=== PATIENT | female | born 1940 | race Caucasian/White ===

== ENCOUNTER 2018-11-22 08:36 | Inpatient (IN) ==
--- NOTE | 2018-11-08 15:18 | PAT Medication Instructions ---
Medication Instructions Date of Service November 08, 2018 Home Medications aspirin [Aspir-Low] 81 mg PO QAM diclofenac sodium 50 mg PO TID PRN hydrochlorothiazide 50 mg PO QAM losartan 100 mg PO QAM tramadol 1 - 2 tab PO Q6H PRN ASK your surgeon for instructions aspirin [Aspir-Low] 81 mg PO QAM diclofenac sodium 50 mg PO TID PRN DO NOT take the morning of surgery hydrochlorothiazide 50 mg PO QAM losartan 100 mg PO QAM Take morning of surgery With a small sip of water, OTHERWISE NOTHING TO EAT OR DRINK AFTER MIDNIGHT: tramadol 1 - 2 tab PO Q6H PRN (okay to take up to 4 hours prior to surgery if needed) Other Notes If you have any questions please call us at [phone] or [phone] or [phone] or [phone]
--- NOTE | 2018-11-09 13:24 | Anesthesiology Consultation ---
Date of Service November 09, 2018 Assessment & Plan (1) Encounter for pre-operative examination: - Cardio= 10/18/18= dizziness/bradycardia/chest discomfort complaints. Holter monitor ordered (done 10/27/18). Symptoms resolved after discontinuation of amlodipine which was started shortly prior to patient's development of symptoms. Updated cardio note= 11/13/18= "clear for surgery at intermediate risk." Chart Review Chart Review: Acceptable Risk for Surgery and Patient seen in Pre Admission Testing Teaching & Discussion Pre-Anesthesia Teaching/Discussion Notes: Instructed NPO after midnight before surgery,except medications with 15 cc of water. Medication instructions provided according to the PAT guidelines. History Surgery Operation Date: 11/22/18 12:35 Proposed Procedures p Right Reverse Total Shoulder Arthroplasty - Stone Johnson DO Height/Weight Height: 5 ft 5 in Weight: 97.3 kg Allergies Allergy/AdvReac Type Severity Reaction Status Date / Time Penicillins Allergy Severe DYSPNEA/THROAT Verified 11/09/18 13:50 SWELLING/LIMB SWELLING amlodipine AdvReac BRADYCARDIA Verified 11/09/18 13:52 sodium pentothal Allergy Severe DYSPNEA/THROAT Uncoded 11/09/18 13:50 SWELLING/LIMB SWELLING Medications Home Medications Medication Instructions Recorded Confirmed Last Taken aspirin [Aspir-Low] 81 mg PO QAM 11/08/18 11/08/18 Unknown diclofenac sodium 50 mg PO TID PRN 11/08/18 11/08/18 Unknown hydrochlorothiazide 50 mg PO QAM 11/08/18 11/08/18 Unknown losartan 100 mg PO QAM 11/08/18 11/08/18 Unknown tramadol 1 - 2 tab PO Q6H PRN 11/08/18 11/08/18 Unknown Past Medical History Medical History CAD (coronary artery disease) "MILD" Hypertension Obesity Osteoarthritis Spinal stenosis Vascular disease S/P RLE STENT Past Surgical History Surgical History History of cardiac catheterization 2005= NO STENTS History of cataract surgery B/L + LENS IMPLANT History of colonoscopy History of lumbar surgery History of surgery RLE STENT History of tooth extraction History of total abdominal hysterectomy and bilateral salpingo-oophorectomy History of total knee replacement B/L Past Anesthesia History No Hx of Anesthesia Complications and No Family Hx of Anesthesia Complications History of PONV Yes () Motion Sickness Screening History of Motion Sickness: No Social History Smoking Status: Never smoker Do You Dip or Chew Tobacco: No Hx Alcohol Use: No Hx Substance Use: No substance use type: does not use Exercise / Class Metabolic Activity III < 4 Walking/Shop/Light housework Review of Systems Right shoulder pain with RUE radiculopathy. Patient denies chest pain, shortness of breath, cough, wheezing, palpitations. Physical Exam Vital Signs VITALS BP 121/82 P 77 TEMP 97.9 SP02 92%RA RESP 18 PHYSICAL Full neck and c-spine range of motion. Full TMJ range of motion. TMD 3 finger breaths Mallampati Score 2 Dentition: full dentures upper/lower; edentulous Lungs: clear throughout to auscultation Cardiac: regular rate and rhythm, no murmurs noted Spine: normal Carotid arteries: negative bruit Extremities: no edema Testing Electrocardiogram Date: 10/18/18 Findings: + NSR @ (84) Chest X-Ray Date: 11/09/18 Findings: + NAD Echocardiogram Date: 11/08/17 LVEF 50-55%. No RWMA. Grade I DD. No significant valvular disease. Stress Test Date: 11/08/17 Type: nuclear (LEXISCAN) Gated SPECT imaging reveals normal wall motion, myocardial thickening and systolic function. Stress EKG "normal." LVEF 65-70%. Other Testing 24 hour Holter Monitor= 10/27/18= predominant rhythm NSR. Periods of sinus arrhythmia/sinus tachycardia. No episodes a. fib or a. flutter. Moderate PAC's. Rare PVC's. Laboratory Results Blood Type A Negative 11/09/18 14:01 Antibody Screen NEGATIVE 11/09/18 14: PT 10.6 Seconds (9.0-12.0) 11/09/18 14:01 INR 1.0 (0.9-1.1) 11/09/18 14:01 APTT 25.6 Seconds (21.0-31.0) 11/09/18 14:01 10/03/18 WBC 8.7 H/H 14.9/43.7 PLATELETS 227 SODIUM 140 POTASSIUM 4.2 CHLORIDE 107 CO2 24 BUN 17 CREATININE 0.91 GLUCOSE 112
--- NOTE | 2018-11-09 14:18 | XRay Report ---
XR chest Pre-admission PA/Lat CLINICAL HISTORY: Preoperative chest COMPARISON STUDY: No previous studies for comparison. FINDINGS: The cardiac and mediastinal contours are normal. There is no evidence of focal pulmonary co nsolidation. There is no evidence of failure. No pleural effusions are visualized.[ There are advance d osteoarthritic changes in the left shoulder and moderate osteoarthritic changes within the right sh oulder. IMPRESSION: No active disease in the chest. Electronically signed by: Aquiles Ross M.D. 11/09/2018 2:17 PM
[2018-11-09 14:44] LABS: Partial Thromboplastin Ratio 0.9; Partial Thromboplastin Time 25.6 Seconds (21.0-31.0); Prothrombin Time 10.6 Seconds (9.0-12.0)
--- NOTE | 2018-11-21 19:51 | History & Physical Report ---
Date of Service November 21, 2018 Assessment & Plan (1) Primary osteoarthritis of right shoulder: We will proceed with a reverse right shoulder arthroplasty. Postoperatively she will be placed in the sling and kept overnight at the hospital for postoperative medical management. She plans to use home nursing agency upon discharge. Present on Admission?: Yes History of Present Illness Chief Complaint: Primary osteoarthritis of the right shoulder Primary Care Provider: Rosa Abdalla DO Leona is a pleasant 78-year-old female who has been dealing with a long history of right shoulder pain. It hurts her for the past 10 years. It is to the point now where it is really affecting her quality of life. She cannot sleep on that side. It hurts her all night. She is in constant pain because of her shoulder. She has had x-rays and an MRI of her shoulder which shows advanced osteoarthritis and a weakened atrophied rotator cuff. She has had multiple injections in her shoulder without relief. After failing conservative treatment she has elected proceed with a reverse right shoulder arthroplasty. Allergies Allergy/AdvReac Type Severity Reaction Status Date / Time Penicillins Allergy Severe DYSPNEA/THROAT Verified 11/09/18 13:50 SWELLING/LIMB SWELLING thiopental [From Pentothal] Allergy Severe DYSPNEA/THROAT Verified 11/16/18 15:08 SWELLING/LIMB SWELLING amlodipine AdvReac BRADYCARDIA Verified 11/09/18 13:52 Home Medications Home Medications Medication Instructions Recorded Confirmed Type aspirin [Aspir-Low] 81 mg PO QAM 11/08/18 11/08/18 History diclofenac sodium 50 mg PO TID PRN 11/08/18 11/08/18 History hydrochlorothiazide 50 mg PO QAM 11/08/18 11/08/18 History losartan 100 mg PO QAM 11/08/18 11/08/18 History tramadol 1 - 2 tab PO Q6H PRN 11/08/18 11/08/18 History Past Med/Surg History Medical History CAD (coronary artery disease) "MILD" Hypertension Obesity Osteoarthritis Spinal stenosis Vascular disease S/P RLE STENT Surgical History History of cardiac catheterization 2005= NO STENTS History of cataract surgery B/L + LENS IMPLANT History of colonoscopy History of lumbar surgery History of surgery RLE STENT History of tooth extraction History of total abdominal hysterectomy and bilateral salpingo-oophorectomy History of total knee replacement B/L Social History Preferred Language: Jamaican Communication Ability: Effective Composite Bond Technician Required: No Beliefs That Will Affect Care: None Current Living Situation: Spouse Other Information That Helps Us Care for You: No Feels Safe at Home: Yes Safety Concerns: Feels Safe At This Time Smoking Status: Never smoker Hx Alcohol Use: No Hx Substance Use: No Review of Systems All systems reviewed & are unremarkable except as noted in HPI & below Physical Exam Constitutional: WD/WN, vitals as above Eyes: PERRL, conjunctivae normal, anicteric sclerae ENMT: external ear and nose normal, oropharynx normal Neck: trachea midline, no thyromegaly Respiratory: normal respiratory effort Cardiovascular: RRR, no murmur, no edema Gastrointestinal (Abdomen): normal bowel sounds, soft, nontender, no hepatosplenomegaly Musculoskeletal: Physical examination of the right shoulder reveals decreased range of motion and crepitis throughout. There is good strength with full can testing and external rotation. There is tenderness palpation along the anterior glenohumeral joint line. The right upper extremity is neurovascularly intact. Psychiatric: A+Ox3, euthymic affect Results & Data Diagnostic Findings Radiographs of the right shoulder show osteoarthritis of the glenohumeral joint. There is joint space narrowing, osteophyte formation, and [id number] articulation.
[~2018-11-22 08:36] MED LIST: ACETAMINOPHEN 500 MG TAB PO SCH; CEFAZOLIN 2000MG 2,000 MG/15 ML SYR IV SCH; DEXAMETHASONE SOD INJ 4 MG/ML VIAL ONE; FAMOTIDINE 20 MG TAB PO SCH; GABAPENTIN 300 MG PO SCH; LR 15ML/HR IV SCH; LR 60ML/HR IV SCH; ROPIVACAINE 0.5% 5 MG/ML 30 ML VIAL ONE; ROPIVACAINE 0.5% HCL/PF 150 MG, BUPIVACAINE 0.5% MPF 30 ML, EPINEPHrine 30MG/30ML (OR U... INFIL SCH; TRANEXAMIC ACID 1,000 MG **IV Intra-op IV SCH; TRANEXAMIC ACID 1,000 MG **IV Pre-op IV SCH
--- NOTE | 2018-11-22 09:09 | History & Physical Bridge Note ---
Date of Service November 22, 2018 History & Physical Bridge Note I have examined the patient, reviewed the History & Physical and in the interval since the performance of the History & Physical I have noted the following changes of clinical significance: no changes noted
[2018-11-22] MEDS ORDERED: BUPIVACAINE 0.5 % 5 MG/1 ML PF 10ML VIAL ONE (10:12)
[2018-11-22] MEDS ORDERED: LIDOCAINE HCL 2% 2 ML VIAL/AMP(20MG/ML) INFIL ONE (10:15)
[2018-11-22] MEDS ORDERED: POVIDONE-IODINE OP SOLN 30 ML BTL ONE (11:39)
[2018-11-22] MEDS ORDERED: ORTHO JOINT ANESTHETIC ONE (11:39)
[2018-11-22] MEDS ORDERED: MIDAZOLAM HCL 1 MG/ML 2ML VIAL ONE (11:43)
[2018-11-22] MEDS ORDERED: fentaNYL citrate 100 MCG/2 ML VIAL ONE ×2 (11:44→11:57)
[2018-11-22] MEDS ORDERED: PROPOFOL IV EMULSION 10 MG/ML 20 ML VIAL IV ONE (13:20)
[2018-11-22] MEDS ORDERED: GLYCOPYRROLATE 0.2 MG/ML VIAL ONE (13:45)
[2018-11-22] MEDS ORDERED: ONDANSETRON INJ 2 MG/ML 2 ML VIAL ONE (13:45)
[2018-11-22] MEDS ORDERED: DEXAMETHASONE SOD INJ 4 MG/ML VIAL ONE (13:45)
[2018-11-22] MEDS ORDERED: NEOSTIGMINE METHYLSULFATE 5 MG/5 ML SYR ONE (13:45)
--- NOTE | 2018-11-22 13:45 | Operative Report ---
Post Operative Report Pre & Post Diagnosis Operation Date: 11/22/18 10:55 Pre-Op Diagnosis: Chronic Rotator Cuff Tear Right Shoulder Post-Op Diagnosis: Chronic Rotator Cuff Tear Right Shoulder Procedure Operation Date: 11/22/18 10:55 Actual Procedures p Right Reverse Total Shoulder Arthroplasty(Right) - Stone Johnson DO Surgeon Stone Johnson DO Full Stack Php Developer Stone Dickey PAC Estimated Blood Loss 200 Findings Consistent with Post-Op Diagnosis Specimens Right humeral head Complications none Disposition Disposition: Recovery Room Indications Leona is a pleasant 78-year-old female who presented my office with chronic increasing right shoulder pain. X-rays and clinical examination were diagnostic for advanced osteoarthritis of the right shoulder. Given her lack of motion and her age, along with the glenoid bone loss, we elected to proceed with a reverse right shoulder arthroplasty. Description of Procedure Implants used: I used a [employer] Comprehensive reverse total shoulder arthroplasty system with a size 14 press fit mini humeral stem, a standard humeral tray and a standard humeral bearing, a 25 mm mini baseplate with a 6.5 mm central screw and superior and inferior locking screws, and a size 36 mm +3 eccentric glenosphere. The patient arrived at [facility] for the above procedure. There were seen in the preoperative holding area and the operative extremity was identified and signed. They were given a preoperative antibiotic and an interscalene nerve block. They were taken back to the operating room, laid on table in supine position, and put under general anesthesia. They were then put into the beachchair position. The shoulder was then prepped and draped in sterile fashion. A timeout was done and the patient in the operative extremity was properly identified. A deltopectoral approach was used. Dissection was taken down through the fascia and the deltoid was retracted laterally and the conjoined tendon was retracted medially. The anterior shoulder was exposed. The long head of the biceps tendon was tenodesed to the upper border of the pectoralis major. The subscapularis was then released off the lesser tuberosity with a centimeter of cuff tissue remaining. The inferior capsule was released and the humeral head was dislocated. A canal finding reamer was sent down the center of the humeral canal. Sequential reaming up to a size 14 reamer was done. Off that reamer, a proximal humeral resection guide was placed. The proximal humerus was resected at 135 of inclination and 25 of retroversion. Osteophytes were then removed and the glenoid was exposed. Time was spent doing a complete capsular and labral release. The glenoid guide was then placed in the inferior aspect of the glenoid. A 3.2 mm Steinmann pin was then placed into the glenoid vault at 10 of inclination. The glenoid baseplate was then reamed. The final size 25 mm mini baseplate was then impacted in the place. A 6.5 mm central screw was then placed followed by superior and inferior locking screws. A 36 mm +3 eccentric glenoid sphere was then impacted into place. Surrounding soft tissues were then injected with 100 cc an orthopedic pain control cocktail. The proximal humerus was then exposed. Sequential broaching of the humerus up to a size 14 broach was done. Off that broach a standard humeral tray was trialed. The shoulder was then reduced, brought through a full range of motion and felt to be stable. The shoulder was then dislocated and the broach was removed. The final size 14 mini press-fit humeral stem was then impacted into place. A standard humeral bearing was then snapped onto a standard humeral tray and the ring-lock mechanism was engaged. The humeral tray was then impacted onto the humeral stem. The shoulder was once again reduced, brought through a full range of motion and felt to be stable. The subscapularis was then tenodesed back to the lesser tuberosity with transosseous FiberWire sutures and side to side sutures with the arm in 45 of external rotation. A dilute betadyne lavage was then done for 3 minutes. The joint was then irrigated with normal saline solution. Hemostasis was obtained. The skin was then closed with 2-0 Vicryl, 3-0V lock suture, and abdelrahman. A soft dressing and a regular arm sling was placed. The patient was then extubated and transferred to a hospital bed. They were taken to the postanesthesia care unit in stable condition. They tolerated the procedure well. I attest to the content of the Intraoperative Record and any orders documented therein. Any exceptions are noted below.
[2018-11-22] MEDS ORDERED: ONDANSETRON INJ 2 MG/ML 2 ML VIAL IV PRN ×2 (14:31→15:58)
[2018-11-22] MEDS ORDERED: PROMETHAZINE HCL 12.5 MG in SODIUM CHLORIDE 0.9% 50 ML IV PRN (14:31)
[2018-11-22] MEDS ORDERED: ePHEDrine sulfate 50 MG/ML AMP IV PRN (14:31)
[2018-11-22] MEDS ORDERED: METOCLOPRAMIDE HCL INJ 5 MG/ML 2 ML VIAL IV PRN ×2 (14:31→15:58)
[2018-11-22] MEDS ORDERED: ATROPINE SULFATE 0.1 MG/ML 10ML SYR IV PRN (14:31)
--- NOTE | 2018-11-22 14:40 | XRay Report ---
XR shoulder RT min 2V routine CLINICAL HISTORY: Post shoulder surgery COMPARISON: Right shoulder radiographs June 23, 2018. MRI of the right shoulder September 14, 2018. FINDINGS: Alignment of the reverse total right shoulder arthroplasty is anatomic. There is no unexpe cted radiopaque foreign body. Note is made of a lucency within the shaft of the right humerus distal to the distal aspect of the humeral component. This favors a nondisplaced fracture. Hardware is intac t. There are skin abdelrahman. Mild right lower lung opacity favors atelectasis. IMPRESSION: 1. Lucency within the shaft of the right humerus adjacent to the distal aspect of the humeral compone nt. This favors a nondisplaced fracture. A vascular channel could appear similar although is consider ed less likely. This finding will be called to the ordering physician. 2. Status post total right shoulder arthroplasty. No unexpected radiopaque foreign bodies. Hardware i ntact. Electronically signed by: Nathaniel Mike M.D. 11/22/2018 2:38 PM
[2018-11-22] MEDS ORDERED: BISACODYL 10 MG SUPP PR PRN (15:58)
[2018-11-22] MEDS ORDERED: NALOXONE HCL 0.4 MG/1 ML VIAL/CARP IV PRN (15:58)
[2018-11-22] MEDS ORDERED: OXYCODONE HCL IR 5 MG TAB (IMMEDIATE RELEASE) PO PRN (15:58)
[2018-11-22] MEDS ORDERED: CEFAZOLIN 2000MG 2,000 MG/15 ML SYR IV SCH (15:58)
[2018-11-22] MEDS ORDERED: HYDROmorphone INJ 0.5 MG/0.5 ML SYR IV PRN (15:58)
[2018-11-22] MEDS ORDERED: MAGNESIUM HYDROXIDE SUSP 30 ML UDC PO PRN (15:58)
--- NOTE | 2018-11-22 16:43 | Anesthesiology Progress Note ---
Date of Service November 22, 2018 Anesthesia Post Procedure Vital Signs Vital Signs: Temp Pulse Pulse Resp BP Pulse Ox 11/22/18 16:08 71 17 133/83 98 11/22/18 15:40 36.4 C L 68 15 119/77 97 11/22/18 15:25 75 17 113/67 95 11/22/18 15:10 74 15 121/78 94 11/22/18 14:55 78 16 131/85 94 11/22/18 14:45 36.4 C L 78 14 127/77 93 11/22/18 14:35 80 16 133/83 92 11/22/18 14:25 82 18 140/89 92 11/22/18 14:15 86 17 130/85 95 11/22/18 14:09 36.1 C L 92 H 16 130/87 95 11/22/18 09:50 36.8 C 76 20 135/94 91 Pain Intensity Right Shoulder: Pain Intensity: 5 Notes Mental Status: alert / awake / arousable and participated in evaluation Patient Amnestic to Procedure: Yes Nausea / Vomiting: adequately controlled Pain: adequately controlled Airway Patency, RR, SpO2: stable & adequate BP & HR: stable & adequate Hydration State: stable & adequate Anesthetic Complications: no major complications apparent
[2018-11-22] MEDS: KETOROLAC TROMETHAMINE 15 MG/ML VIAL IV SCH ×2 (18:32→23:24)
[2018-11-22] MEDS: SODIUM CHLORIDE 0.9% 1000ML 1,000 ML IV SCH (19:26)
[2018-11-22] MEDS: ACETAMINOPHEN 500 MG TAB PO SCH (20:44)
[2018-11-22] MEDS: DOCUSATE SODIUM 100 MG CAP PO SCH (20:44)
[2018-11-22] MEDS: CLINDAMYCIN 600 MG in DEXTROSE 5% 50 ML IV SCH (20:44)
[2018-11-22] MEDS ORDERED: SENNA 8.6 MG TAB PO SCH (21:00)
[2018-11-23] MEDS: CLINDAMYCIN 600 MG in DEXTROSE 5% 50 ML IV SCH (03:15)
[2018-11-23] MEDS: KETOROLAC TROMETHAMINE 15 MG/ML VIAL IV SCH ×2 (05:24→12:48)
[2018-11-23] MEDS: ACETAMINOPHEN 500 MG TAB PO SCH (05:24)
[2018-11-23] MEDS: SODIUM CHLORIDE 0.9% 1000ML 1,000 ML IV SCH (05:34)
[2018-11-23 06:41] LABS: Basophils # (auto) 0.01 K/uL (0-0.2); Basophils % (auto) 0.1 %; Eosinophils # (auto) 0.03 K/uL (0-0.5); Eosinophils % (auto) 0.3 %; Hematocrit (blood only) 34.1 % (37-47); Hemoglobin 11.6 g/dL (12.0-16.0); Immature Granulocytes # (auto) 0.01 K/uL (0.00-0.02); Immature Granulocytes % (auto) 0.1 %; Lymphocytes # (auto) 1.14 K/uL (1.2-3.4); Lymphocytes % (auto) 11.6 %; Mean Corpuscular Volume 86.8 fL (80-100); Mean Platelet Volume 9.6 fL (7.4-10.4); Monocytes # (auto) 0.93 K/uL (0.11-0.59); Monocytes % (auto) 9.5 %; Neutrophils # (auto) 7.72 K/uL (1.4-6.5); Neutrophils % (auto) 78.4 %; Platelet Count 161 K/uL (130-400); RDW Coefficient of Variation 13.3 % (11.5-14.5); RDW Standard Deviation 42.5 fL (36.4-46.3); Red Blood Count 3.93 M/uL (4.2-5.4); White Blood Count 9.84 K/uL (4.8-10.8)
[2018-11-23 07:06] LABS: BUN Creatinine Ratio 19.3 (10-20); Calcium 8.2 mg/dl (8.5-10.1); Creatinine Clr Calc Pharmacy 54.8 ml/min; Est GFR (African American) 67.3; Potassium 3.6 mmol/L (3.5-5.1)
--- NOTE | 2018-11-23 08:19 | Anesthesiology Progress Note ---
Date of Service November 23, 2018 Anesthesia Post Procedure Vital Signs Vital Signs: Temp Pulse Pulse Resp BP Pulse Ox 11/23/18 07:06 36.6 C 59 L 18 101/66 92 11/23/18 02:43 36.4 C L 64 16 120/80 91 11/22/18 22:57 36.7 C 67 20 119/74 94 11/22/18 18:34 36.3 C L 77 15 124/83 97 11/22/18 17:49 64 16 105/71 96 11/22/18 16:43 67 17 122/81 95 11/22/18 16:08 71 17 133/83 98 11/22/18 15:40 36.4 C L 68 15 119/77 97 11/22/18 15:25 75 17 113/67 95 11/22/18 15:10 74 15 121/78 94 11/22/18 14:55 78 16 131/85 94 11/22/18 14:45 36.4 C L 78 14 127/77 93 11/22/18 14:35 80 16 133/83 92 11/22/18 14:25 82 18 140/89 92 11/22/18 14:15 86 17 130/85 95 11/22/18 14:09 36.1 C L 92 H 16 130/87 95 11/22/18 09:50 36.8 C 76 20 135/94 91 Pain Intensity Right Shoulder: Pain Intensity: 5 Notes Mental Status: alert / awake / arousable and participated in evaluation Nausea / Vomiting: adequately controlled Pain: adequately controlled Airway Patency, RR, SpO2: stable & adequate BP & HR: stable & adequate Hydration State: stable & adequate Neuraxial Anesthesia: sensory block is resolving Anesthetic Complications: Pt Satisfied with anesthetic care
--- NOTE | 2018-11-23 08:32 | Orthopedic Progress Note ---
Date of Service November 23, 2018 Assessment & Plan (1) Primary osteoarthritis of right shoulder: Overall she is doing very well. She is not having any pain in the right shoulder. She will be seen by physical therapy this morning to do hand, wrist, and pendulum exercises. We will discharge her to home later this morning with oral pain medications. I did tell her about the small fracture off the inferior aspect of the prosthesis and I told her we will not make any difference in her recovery and she was happy to hear that. She did not seem concerned. She will follow-up with orthopedics in 2 weeks. Present on Admission?: Yes Savita Delgadillo was seen and examined at bedside this morning. Overall she is doing very well. She is not having any pain in the right shoulder. She is happy with her progress. She has no complaints. Physical Exam Vital Signs (Past 24 Hours): Last Vital Signs Temp 36.6 C 11/23/18 07:06 Pulse 59 L 11/23/18 07:06 Resp 18 11/23/18 07:06 BP 101/66 11/23/18 07:06 Pulse Ox 92 11/23/18 07:06 Musculoskeletal: On physical examination of the right shoulder, the dressing is clean and dry. Her radial, median, and ulnar nerves are all checked and intact at the wrist. Her axillary nerve was not checked yet. She is wearing her sling as instructed. Results & Data Laboratory Results H & H 11/23/18 Range/Units 06:28 Hgb 11.6 L (12.0-16.0) g/dL Hct 34.1 L (37-47) % Coagulation 11/09/18 Range/Units 14:01 INR 1.0 (0.9-1.1) Diagnostic Findings Postoperative x-rays of the right shoulder show the prosthesis to be in anatomic alignment without any evidence of dislocation or loosening. There is a small line off the inferior aspect of the prosthesis. This may be a very small nondisplaced fracture. This will not make any difference in her recovery.
--- NOTE | 2018-11-23 08:33 | Discharge Summary ---
Date of Service November 23, 2018 Admission HPI Per Admitting Provider Leona is a pleasant 78-year-old female who has been dealing with a long history of right shoulder pain. It hurts her for the past 10 years. It is to the point now where it is really affecting her quality of life. She cannot sleep on that side. It hurts her all night. She is in constant pain because of her shoulder. She has had x-rays and an MRI of her shoulder which shows advanced osteoarthritis and a weakened atrophied rotator cuff. She has had multiple injections in her shoulder without relief. After failing conservative treatment she has elected proceed with a reverse right shoulder arthroplasty. Specialty Data Orthopedic H & H 11/23/18 Range/Units 06:28 Hgb 11.6 L (12.0-16.0) g/dL Hct 34.1 L (37-47) % Coagulation 11/09/18 Range/Units 14:01 INR 1.0 (0.9-1.1) Discharge Data Consultations 11/22/18 15:58 Consult Case Management - Discharge Planning Routine Procedures Performed Operation Date: 11/22/18 10:55 Actual Procedures p Right Reverse Total Shoulder Arthroplasty(Right) - Stone Johnson, DO Hospital Course (1) Primary osteoarthritis of right shoulder: On November 22, 2018 Leona arrived at [facility] and underwent a right reverse shoulder arthroplasty without complication. She had a general anesthetic and a right interscalene nerve block. Postoperatively she was placed in an arm sling and discharged to general orthopedic floors. Her hospital course was uneventful. On postop day #1 her H&H was stable and her pain was well controlled. She was able to participate well with physical therapy doing range of motion exercises. She was then discharged to home and will follow-up with orthopedics in 2 weeks. Discharge Instructions Home Medications Medication Instructions Recorded Confirmed aspirin [Aspir-Low] 81 mg PO QAM 11/08/18 11/22/18 diclofenac sodium 50 mg PO TID PRN 11/08/18 11/22/18 hydrochlorothiazide 50 mg PO QAM 11/08/18 11/22/18 losartan 100 mg PO QAM 11/08/18 11/22/18 tramadol 1 - 2 tab PO Q6H PRN 11/08/18 11/22/18 Previous Rx's Medication Instructions Recorded oxycodone 5 - 10 mg PO Q4H PRN #30 tab 11/23/18
[2018-11-23] MEDS: DOCUSATE SODIUM 100 MG CAP PO SCH (08:52)
[2018-11-23] MEDS ORDERED: ASPIRIN 81 MG ECTAB PO SCH (09:00)
[2018-11-23] MEDS ORDERED: LOSARTAN POTASSIUM 50 MG TAB PO SCH (09:00)
[2018-11-23] MEDS ORDERED: MULTIVITAMIN TAB PO SCH (09:00)
[2018-11-23 11:02] VITALS: BP 96/64; PULSE 70; TEMP 98.6; O2SAT 90
== END 2018-11-23 13:58 | disposition home or self-care (01) | DRG 483 ==
LOC: ASU 08:36 → 3E 11:55

== ENCOUNTER 2020-02-05 10:45 | Inpatient (IN) ==
--- NOTE | 2020-01-30 14:02 | Anesthesiology Consultation ---
Date of Service January 30, 2020 Assessment & Plan (1) Encounter for pre-operative examination: Patient was seen in [facility] 11/2019. Case R/S to later date due to COVID19 pandemic. + H/O PONV. Patient was very satisfied with anesthetic with prior TSA 11/2018. Had 3 days of pain relief at surgical site with Experel. Unsure if scopolamine patch used, but patient did not have PONV. Apply at anesthesia discretion AM DOS as pt is > 80yo. Patient seen by cardiology on 10/16 for evaluation of DEVRIES and chest pain syndrome. Echo and stress ordered and done. Stress test negative for ischemia and infarct. Echo with EF 50% and incidental finding of PFO. Testing reviewed by cardiology at 11/06 visit. Patient started on Metoprolol and Crestor, to f/u in 6 months. Pre-op laboratory studies out of date, will need to be updated AM DOS -- CBC, BMP, PT/INR/PTT. COVID Status: As of nurse assessment 01/29, patient denies travel to endemic area, known exposure/sick contacts, or symptoms. Patient resides in [facility] and has traveled to [facility]. Testing for coronavirus done 01/29 as preoperative screen. Results pending. Chart Review Chart Review: Acceptable Risk for Surgery (pending covid19 test results) and Patient NOT seen in Pre Admission Testing History Surgery Operation Date: 02/05/20 12:45 Proposed Procedures p Left Reverse Total Shoulder Arthroplasty - Stone Johnson DO Height/Weight Height: 5 ft 6 in Weight: 96.162 kg Allergies Allergy/AdvReac Type Severity Reaction Status Date / Time Penicillins Allergy Severe DYSPNEA/THROAT Verified 01/30/20 11:25 SWELLING/LIMB SWELLING thiopental [From Pentothal] Allergy Severe DYSPNEA/THROAT Verified 01/30/20 11:25 SWELLING/LIMB SWELLING amlodipine Allergy Intermediate BRADYCARDIA Verified 01/30/20 11:25 Medications Home Medications Medication Instructions Recorded Confirmed Last Taken diclofenac sodium 50 mg PO TID PRN 11/08/18 01/30/20 11/15/18 09:00 losartan 100 mg PO QAM 11/08/18 01/30/20 11/21/18 09:00 tramadol 50 - 100 mg PO Q6H PRN 10/23/19 01/30/20 Unknown aspirin 81 mg PO QAM 01/30/20 01/30/20 Unknown cholecalciferol (vitamin D3) 50 mcg PO QAM 01/30/20 01/30/20 Unknown [Vitamin D3] hydrochlorothiazide 25 mg PO QAM 01/30/20 01/30/20 Unknown rosuvastatin 10 mg PO HS 01/30/20 01/30/20 Unknown Past Medical History Medical History Elevated LDL cholesterol level Heartburn OCC, 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 Hypertension Obesity Osteoarthritis Spinal stenosis Urinary, incontinence, stress female Vascular disease S/P RLE STENT Vitamin D deficiency Past Family History Family History Other No significant family history Past Surgical History Surgical History History of bilateral hip replacements (Acute) History of cardiac catheterization 2006= NO STENTS PT REPORTS 100% CLEAR History of cataract surgery B/L + LENS IMPLANT History of colonoscopy History of lumbar surgery History of reverse total replacement of right shoulder joint (~11/2018) History of surgery RLE STENT (VASCULAR SURGERY) History of tooth extraction History of total abdominal hysterectomy and bilateral salpingo-oophorectomy Nausea and vomiting after administration of anesthetic agent Social History Smoking Status: Never smoker Do You Dip or Chew Tobacco: No Hx Alcohol Use: No Hx Substance Use: No substance use type: does not use Testing Other Testing Electrocardiogram Date: 10/31/19 Findings: + NSR @ (65) Chest X-Ray Date: 10/31/19 Findings: + NAD Echocardiogram Date: 11/01/19 EF: 50% Low normal LV systolic function. Normal LV diameter. Mild concentric LVH. No rmal diastolic function. Normal right ventricular size and function. No significant valvular stenosis. Trivial aortic regurgitation. Patent foramen ovale. Estimated PA systolic pressure is normal. Stress Test Date: 11/01/19 Type: nuclear Resting EF: 60% Baseline EKG showed sinus rhythm. No significant ST changes with Lexiscan administration. Patient reached 74% MPHR. PVCs. Patient developed dizziness (in recovery), chest pain, "feeling hot" during Lexiscan administration. Stress test is negative for ischemia by EKG criteria. No clear findings: LV and RV normal size. Normal LV wall motion. SPECT images normal. No evidence of infarction or ischemia noted. Recommend medical treatment.
--- NOTE | 2020-02-05 06:40 | History & Physical Report ---
Date of Service February 05, 2020 Assessment & Plan (1) Osteoarthritis of left shoulder: We will proceed with a left reverse shoulder arthroplasty. Postoperatively she will be placed in a sling and kept overnight for postoperative medical management. She plans to go to outpatient physical thera py upon discharge. Leona is a low to moderate risk for shoulder replacement surgery. Present on Admission?: Yes History of Present Illness Chief Complaint: Advanced osteoarthritis of the left shoulder Primary Care Provider: Rosa Abdalla DO Leona is a pleasant 79-year-old female who has been dealing with chronic increasing left shoulder pain. X-rays and clinical examination have been diagnostic for advanced osteoarthritis of the left shoulder. There is severe glenoid bone loss. I did a right reverse shoulder arthroplasty on her about a year ago. She is doing well with that. Unfortunately she is having a lot of pain in her left shoulder. She would like to proceed with a left reverse shoulder arthroplasty. Allergies Allergy/AdvReac Type Severity Reaction Status Date / Time Penicillins Allergy Severe DYSPNEA/THROAT Verified 01/30/20 11:25 SWELLING/LIMB SWELLING thiopental [From Pentothal] Allergy Severe DYSPNEA/THROAT Verified 01/30/20 11:25 SWELLING/LIMB SWELLING amlodipine Allergy Intermediate BRADYCARDIA Verified 01/30/20 11:25 Home Medications Home Medications Medication Instructions Recorded Confirmed Type diclofenac sodium 50 mg PO TID PRN 11/08/18 01/30/20 History losartan 100 mg PO QAM 11/08/18 01/30/20 History tramadol 50 - 100 mg PO Q6H PRN 10/23/19 01/30/20 History aspirin 81 mg PO QAM 01/30/20 01/30/20 History cholecalciferol (vitamin D3) 50 mcg PO QAM 01/30/20 01/30/20 History [Vitamin D3] hydrochlorothiazide 25 mg PO QAM 01/30/20 01/30/20 History rosuvastatin 10 mg PO HS 01/30/20 01/30/20 History Past Med/Surg History Medical History Elevated LDL cholesterol level Heartburn OCC, 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 Hypertension Obesity Osteoarthritis Spinal stenosis Urinary, incontinence, stress female Vascular disease S/P RLE STENT Vitamin D deficiency Surgical History History of bilateral hip replacements (Acute) History of cardiac catheterization 2006= NO STENTS PT REPORTS 100% CLEAR History of cataract surgery B/L + LENS IMPLANT History of colonoscopy History of lumbar surgery History of reverse total replacement of right shoulder joint (~11/2018) History of surgery RLE STENT (VASCULAR SURGERY) History of tooth extraction History of total abdominal hysterectomy and bilateral salpingo-oophorectomy Nausea and vomiting after administration of anesthetic agent Family History Other No significant family history Social History Preferred Language: Hungarian Communication Ability: Effective Clerical Clerk Required: No Beliefs That Will Affect Care: None marital status: Current Living Situation: Spouse Feels Safe at Home: Yes Smoking Status: Never smoker Second Hand Exposure: No ; Hx Alcohol Use: No Hx Substance Use: No Review of Systems Review of Systems: All systems reviewed & are unremarkable except as noted in HPI & below Physical Exam Constitutional: WD/WN, vitals as above Eyes: PERRL, conjunctivae normal, anicteric sclerae ENMT: external ear and nose normal, oropharynx normal Neck: trachea midline, no thyromegaly Respiratory: normal respiratory effort Cardiovascular: RRR, no murmur, no edema Gastrointestinal (Abdomen): normal bowel sounds, soft, nontender, no hepatosplenomegaly Musculoskeletal: Physical examination of the left shoulder reveals decreased range of motion and significant weakness. There is tenderness palpation along the anterior glenohumeral joint line. The right upper extremity is neurovascularly intact. Psychiatric: A+Ox3, euthymic affect Results & Data Results & Data ([facility]) Diagnostic Findings Radiographs of the left shoulder show some signs of osteoarthritis with blunting of the greater tuberosity and some superior migration of the humeral head on the glenoid. PG Care Time/CCT Total # of Minutes Spent Total Time Spent with Patient: Total time spent is greater than 50% in coordination of care (as documented) at patient's floor/unit and/or counseling patient: Coding Level of Care Code 32487 Initial Inpt Care Lvl 3 Diagnoses Osteoarthritis of left shoulder M19.012
[~2020-02-05 10:45] MED LIST changes: +BUPIVACAINE 0.5 % 5 MG/1 ML PF 10ML VIAL ONE; -DEXAMETHASONE SOD INJ 4 MG/ML VIAL ONE; +GABAPENTIN 300 MG CAP PO SCH; -GABAPENTIN 300 MG PO SCH; -ROPIVACAINE 0.5% 5 MG/ML 30 ML VIAL ONE; +dexAMETHasone 4 MG TAB PO SCH
[2020-02-05 11:29] LABS: Partial Thromboplastin Time 28.7 Seconds (21.0-31.0)
[2020-02-05 11:41] LABS: BUN Creatinine Ratio 14.5 (10-20); Calcium 9.7 mg/dl (8.5-10.1); Creatinine Clr Calc Pharmacy 48.8 ml/min; Est GFR (African American) 57.9; Potassium 3.5 mmol/L (3.5-5.1)
[2020-02-05 11:50] LABS: Hematocrit (blood only) 44.6 % (37-47); Hemoglobin 15.1 g/dL (12.0-16.0); Mean Corpuscular Hemoglobin 29.8 pg (25-34); Mean Corpuscular Volume 88.1 fL (80-100); Mean Platelet Volume 10.5 fL (7.4-10.4); Platelet Count 290 K/uL (130-400); RDW Coefficient of Variation 13.8 % (11.5-14.5); RDW Standard Deviation 44.4 fL (36.4-46.3); Red Blood Count 5.06 M/uL (4.2-5.4); White Blood Count 8.56 K/uL (4.8-10.8)
[2020-02-05 11:55] LABS: Mean Corpuscular Hgb Conc 33.9 g/dL (32-36)
[2020-02-05] MEDS ORDERED: fentaNYL citrate 100 MCG/2 ML VIAL ONE (12:36)
[2020-02-05] MEDS ORDERED: MIDAZOLAM HCL 1 MG/ML 2ML VIAL ONE (12:36)
[2020-02-05] MEDS ORDERED: Nursing to Pharmacy Communication ONE ×2 (13:40→19:55)
[2020-02-05] MEDS ORDERED: CEFAZOLIN 2,000 MG/15 ML IV PUSH IV ONE (13:42)
[2020-02-05] MEDS ORDERED: ORTHO JOINT ANESTHETIC ONE (13:50)
[2020-02-05] MEDS ORDERED: LIDOCAINE HCL 2% 2 ML VIAL/AMP(20MG/ML) INFIL ONE (13:54)
[2020-02-05] MEDS ORDERED: DEXAMETHASONE SOD INJ 4 MG/ML VIAL ONE (13:54)
[2020-02-05] MEDS ORDERED: ONDANSETRON INJ 2 MG/ML 2 ML VIAL ONE (13:54)
[2020-02-05] MEDS ORDERED: PROPOFOL IV EMULSION 10 MG/ML 20 ML VIAL IV ONE (13:54)
[2020-02-05] MEDS ORDERED: fentaNYL citrate 100 MCG/2 ML VIAL IV PRN (14:15)
[2020-02-05] MEDS ORDERED: HYDROmorphone INJ 1 MG/ML SYRINGE IV PRN (14:15)
[2020-02-05] MEDS ORDERED: ePHEDrine sulfate 50 MG/ML AMP IV PRN (14:15)
[2020-02-05] MEDS ORDERED: ATROPINE SULFATE 0.1 MG/ML 10ML SYR IV PRN (14:15)
[2020-02-05] MEDS ORDERED: PHENYLEPHRINE 100MCG/ML 5ML SYR ONE (14:39)
[2020-02-05] MEDS ORDERED: ePHEDrine sulfate 50 MG/ML AMP ONE (14:45)
--- NOTE | 2020-02-05 16:17 | Operative Report ---
PG Post Operative Report Pre & Post Diagnosis Operation Date: 02/05/20 13:05 Pre-Op Diagnosis: Left Shoulder Degenerative Joint Disease with disease of the long head of the biceps tendon Post-Op Diagnosis: Left Shoulder Degenerative Joint Disease with disease of the long head of the biceps tendon I identified the patient and participated in the time-out.: Yes Procedure Operation Date: 02/05/20 13:05 Actual Procedures p Left Reverse Total Shoulder Arthroplasty with open subpectoral biceps tenodesis as a separate procedure (modifier 59) (Left) - Stone Johnson DO Surgeon Stone Johnson, Construction Scheduler Stone Dickey PAC Estimated Blood Loss 250 Findings Consistent with Post-Op Diagnosis Specimens Left humeral head Complications none Disposition Disposition: Recovery Room Indications Leona is a pleasant 80-year-old female who is been dealing with chronic increasing left shoulder pain. X-rays and clinical examination have been diagnostic for severe osteoarthritis of her left shoulder. She had significant wear of her glenoid. After failing conservative treatment, she elected proceed with a left reverse shoulder arthroplasty. Description of Procedure A CPT code modifier 59: The long head of the biceps tendon was enlarged and inflamed consistent with tendinopathy. A tenodesis was opted. This was a separate and distinct portion of the procedure. For these reasons, a CPT code modifier 59 will be added to this case. Implants used: I used a [employer]omet Comprehensive reverse total shoulder arthroplasty system with a size 13 press fit micro humeral stem, a standard humeral tray and a standard humeral bearing, a 25 mm medium augmented baseplate with a 6.5 mm central screw and superior and inferior locking screws, and a size 36 mm eccentric glenosphe reYesi Delgadillo arrived at [facility] for the above procedure. She was seen in the preoperative holding area and the operative extremity was identified and signed. She was given a preoperative antibiotic, TXA, and an interscalene nerve block. She was taken back to the operating room, laid on table in supine position, and put under general anesthesia. She was then put into the beachcha ir position. The shoulder was then prepped and draped in sterile fashion. A timeout was done and the patient and the operative extremity was properly identified. A deltopectoral approach was used. Dissection was taken down through the fascia and the deltoid was retracted laterally and the conjoined tendon was retracted medially. The anterior shoulder was exposed. The biceps groove was opened up and the biceps tendon was examined extensively. The biceps tendon demonstrated enlargement and inflammatory changes consistent with longstanding inflammation in the context of osteoarthritis and cuff arthropathy. The long head of the biceps tendon was then tenodesed to the upper border of the pectoralis major. This was a separate and distinct portion of the procedure. The subscapularis was then directly released off the lesser tuberosity with a peel technique. The inferior capsule was released and the humeral head was dislocated. A canal finding reamer was sent down the center of the humeral canal. Sequential reaming up to a size 13 reamer was done. Off that reamer, a proximal humeral resection guide was placed. The proximal humerus was resected at 135 of inclination and 25 of retroversion. Osteophytes were then removed and the glenoid was exposed. Time was spent doing a complete capsular and labral release. A HackSurfer signature guide was then attached onto the anterior rim of the glenoid. A 3.2 mm Steinmann pin was then placed in the reverse total shoulder arthroplasty hole. This was a type B 3 glenoid. There was about 30 degrees of retroversion. I decided to use an augmented baseplate. The anterior 50% was reamed flat. A curette was used to remove any cartilage from the posterior slope. I did not need to ream posteriorly. Trials were used and a medium posterior glenoid augment was a perfect fit. The final size 25 mm baseplate with a medium augment was then impacted in the place. A 6.5 mm central screw was then placed followed by superior and inferior locking screws. A 36 mm eccentric glenosphere was then impacted into place. Surrounding soft tissues were then injected with 100 cc an orthopedic pain control cocktail. The proximal humerus was then exposed. Sequential broaching of the humerus up to a size 13 broach was done. Off that broach a standard humeral tray was trialed. The shoulder was then reduced, brought through a full range of motion, and felt to be stable. The shoulder was then dislocated and the broach was removed. The final size 13 micro press-fit humeral stem was then impacted into place. A standard humeral bearing was then snapped onto a standard humeral tray. The humeral tray was then impacted onto the humeral stem. The shoulder was once again reduced, brought through a full range of motion, and felt to be stable. The subscapularis was then tenodesed back to the lesser tuberosity with transosseous FiberWire sutures and side to side sutures with the arm in 45 of external rotation. A dilute betadyne lavage was then done for 3 minutes. The joint was then irrigated with normal saline solution. Hemostasis was obtained. The interval was closed with 2-0 Vicryl suture. The skin was then closed with 2-0 Vicryl and abdelrahman. A soft dressing was placed and the arm was rested in a regular arm sling. She was then extubated and transferred to a hospital bed. She taken to the postanesthesia care unit in stable condition. She tolerated the procedure well. Stone Dickey PA-C, was present for the entire procedure. He was critical for patient positioning, prepping, draping, retraction exposure, wound closure and application of sterile dressing. I attest to the content of the Intraoperative Record and any orders documented therein. Any exceptions are noted below.
--- NOTE | 2020-02-05 16:51 | XRay Report ---
XR shoulder LT min 2V routine CLINICAL HISTORY: Post shoulder surgery postoperative COMPARISON: 01/03/2019 DISCUSSION: Anatomic alignment post total left shoulder arthroplasty. Could contact between prostheti c and underlying bone. Expected soft tissue postoperative change IMPRESSION: Anatomic alignment posttotal left shoulder arthroplasty. ACT 112: Negative or not required by law. The above report was generated using voice recognition software. It may contain grammatical, syntax or spelling errors. Electronically signed by: Kt Landers M.D. 02/05/2020 4:50 PM
--- NOTE | 2020-02-05 16:59 | Anesthesiology Progress Note ---
Date of Service February 05, 2020 Anesthesia Post Procedure Vital Signs Vital Signs: Temp Pulse Pulse Resp BP BP Pulse Ox 02/05/20 16:55 78 19 119/80 95 02/05/20 16:45 74 16 118/82 96 02/05/20 16:35 75 20 120/73 96 02/05/20 16:27 36.5 C 81 15 125/75 96 02/05/20 11:39 36.9 C 79 20 145/94 H 97 Pain Intensity Left Shoulder: Pain Intensity: 3 Transfer of Care Handoff Completed per policy Notes Mental Status: alert / awake / arousable Patient Amnestic to Procedure: Yes Nausea / Vomiting: adequately controlled Pain: adequately controlled Airway Patency, RR, SpO2: stable & adequate BP & HR: stable & adequate Hydration State: stable & adequate Anesthetic Complications: no major complications apparent
[2020-02-05] MEDS ORDERED: bisacodyL 10 MG SUPP PR PRN (17:18)
[2020-02-05] MEDS ORDERED: METOCLOPRAMIDE HCL INJ 5 MG/ML 2 ML VIAL IV PRN (17:18)
[2020-02-05] MEDS ORDERED: OXYCODONE HCL IR 5 MG TAB (IMMEDIATE RELEASE) PO PRN (17:18)
[2020-02-05] MEDS ORDERED: ONDANSETRON INJ 2 MG/ML 2 ML VIAL IV PRN (17:18)
[2020-02-05] MEDS ORDERED: MAGNESIUM HYDROXIDE SUSP 30 ML UDC PO PRN (17:18)
[2020-02-05] MEDS ORDERED: NALOXONE HCL 0.4 MG/1 ML VIAL/CARP IV PRN (17:18)
[2020-02-05] MEDS ORDERED: HYDROmorphone INJ 0.5 MG/0.5 ML SYR IV PRN (17:18)
[2020-02-05] MEDS: SODIUM CHLORIDE 0.9% 1000ML 1,000 ML IV SCH (17:25)
[2020-02-05] MEDS: KETOROLAC TROMETHAMINE 15 MG/ML VIAL IV SCH ×2 (19:03→23:39)
[2020-02-05] MEDS ORDERED: VANCOMYCIN HCL 1,000 MG in SODIUM CHLORIDE 0.9% 250 ML IV ONE (20:30)
[2020-02-05] MEDS ORDERED: ROSUVASTATIN CALCIUM 10 MG TAB PO SCH (21:00)
[2020-02-05] MEDS ORDERED: SENNA 8.6 MG TAB PO SCH (21:00)
[2020-02-05] MEDS: CEFAZOLIN 2000MG 2,000 MG/15 ML SYR IV SCH (21:24)
[2020-02-05] MEDS: DOCUSATE SODIUM 100 MG CAP PO SCH (21:24)
[2020-02-05] MEDS: ACETAMINOPHEN 500 MG TAB PO SCH (21:24)
[2020-02-06] MEDS: SODIUM CHLORIDE 0.9% 1000ML 1,000 ML IV SCH (03:20)
[2020-02-06] MEDS: CEFAZOLIN 2000MG 2,000 MG/15 ML SYR IV SCH (06:08)
[2020-02-06 06:09] LABS: Hematocrit (blood only) 36.3 % (37-47); Hemoglobin 12.4 g/dL (12.0-16.0); Immature Granulocytes # (auto) 0.03 K/uL (0.00-0.02); Immature Granulocytes % (auto) 0.2 %; Lymphocytes # (auto) 1.04 K/uL (1.2-3.4); Lymphocytes % (auto) 7.7 %; Mean Corpuscular Hemoglobin 29.9 pg (25-34); Mean Corpuscular Hgb Conc 34.2 g/dL (32-36); Mean Corpuscular Volume 87.5 fL (80-100); Mean Platelet Volume 10.3 fL (7.4-10.4); Monocytes # (auto) 0.48 K/uL (0.11-0.59); Monocytes % (auto) 3.6 %; Neutrophils # (auto) 11.93 K/uL (1.4-6.5); Neutrophils % (auto) 88.5 %; Platelet Count 216 K/uL (130-400); RDW Coefficient of Variation 13.6 % (11.5-14.5); RDW Standard Deviation 43.9 fL (36.4-46.3); Red Blood Count 4.15 M/uL (4.2-5.4); White Blood Count 13.48 K/uL (4.8-10.8)
[2020-02-06] MEDS: KETOROLAC TROMETHAMINE 15 MG/ML VIAL IV SCH ×2 (06:09→11:48)
[2020-02-06] MEDS: ACETAMINOPHEN 500 MG TAB PO SCH (06:09)
[2020-02-06 06:45] LABS: BUN Creatinine Ratio 18.6 (10-20); Creatinine Clr Calc Pharmacy 48.3 ml/min; Est GFR (African American) 57.9; Potassium 3.1 mmol/L (3.5-5.1)
--- NOTE | 2020-02-06 06:51 | Orthopedic Progress Note ---
Date of Service February 06, 2020 Assessment & Plan (1) Status post reverse arthroplasty of left shoulder: Overall she is doing very well. She is not having much pain in the left shoulder. She will be seen by physical therapy this morning for ambulation and range of motion exercises. She can be discharged home later today. She will follow-up with orthopedics in 2 weeks. Present on Admission?: Yes Savita Delgadillo was seen and examined at bedside this morning. Overall she is doing very well. She is not having any pain in the left shoulder. She is happy with her progress and has no complaints. Physical Exam Musculoskeletal: On physical examination of the left shoulder, the dressing is clean and dry. She is wearing her sling as instructed. Her radial, median, and ulnar nerves are checked and intact at her wrist. Results & Data ([facility]) Vital Signs (Past 12 Hours) Vital Signs Temp Pulse Resp BP Pulse Ox 02/06/20 03:19 36.6 C 61 18 97/60 L 99 02/05/20 23:39 36.3 C L 88 16 97/60 L 92 02/05/20 20:10 36.4 C L 62 16 125/66 93 02/05/20 19:19 36.3 C L 66 16 132/68 99 Laboratory Results H & H 02/05/20 02/06/20 Range/Units 11:01 05:55 Hgb 15.1 12.4 (12.0-16.0) g/dL Hct 44.6 36.3 L (37-47) % Coagulation 02/05/20 Range/Units 11:01 INR 1.0 (0.9-1.1) Diagnostic Findings Postoperative x-rays of the left shoulder show the prosthesis to be in anatomic alignment without any evidence of fracture, dislocation, or loosening. PG Care Time/CCT Total # of Minutes Spent Total Time Spent with Patient: Total time spent is greater than 50% in coordination of care (as documented) at patient's floor/unit and/or counseling patient: Coding Level of Care Code None Diagnoses Status post reverse arthroplasty of left shoulder Z96.612
--- NOTE | 2020-02-06 06:52 | Discharge Summary ---
Date of Service February 06, 2020 Admission HPI Per Admitting Provider Leona is a pleasant 79-year-old female who has been dealing with chronic increasing left shoulder pain. X-rays and clinical examination have been diagnostic for advanced osteoarthritis of the left shoulder. There is severe glenoid bone loss. I did a right reverse shoulder arthroplasty on her about a year ago. She is doing well with that. Unfortunately she is having a lot of pain in her left shoulder. She would like to proceed with a left reverse shoulder arthroplasty. Principal Diagnosis Left reverse shoulder arthroplasty Discharge Data Allergies Allergy/AdvReac Type Severity Reaction Status Date / Time Penicillins Allergy Severe DYSPNEA/THROAT Verified 02/05/20 20:26 SWELLING/LIMB SWELLING thiopental [From Pentothal] Allergy Severe DYSPNEA/THROAT Verified 02/05/20 11:30 SWELLING/LIMB SWELLING amlodipine Allergy Intermediate BRADYCARDIA Verified 02/05/20 11:30 Consultations 02/05/20 17:18 Consult Case Management - Discharge Planning Routine Procedures Performed Operation Date: 02/05/20 13:05 Actual Procedures p Left Reverse Total Shoulder Arthroplasty(Left) - Stone Johnson DO Ordered Studies 02/05/20 05:00 US - OR guided needle placemen Routine Hospital Course (1) Status post reverse arthroplasty of left shoulder: On February 05, 2020 Leona arrived at [facility] and underwent a left reverse shoulder arthroplasty without complication. She had a general anesthetic and a left interscalene nerve block. Postoperatively she was placed in a sling and transferred to the general orthopedic floors. Her hospital course was uneventful. On postop day #1 her H&H was stable and her pain was well controlled. She was able to participate well with physical therapy doing ambulation and range of motion exercises. She was then discharged home. She will follow-up with orthopedics in 2 weeks. Total Time Total Time Spent Total Time Spent (In Minutes): 20 Discharge Plan Discharge Items Patient Disposition: Home - Self-Care Reason For Visit: LEFT SHOULDER DEGENERATIVE JOINT DISEASE Discharge Diagnosis: Left reverse shoulder arthroplasty Activity: As commented below Non-emergency contact: Surgeon Call non-emergency contact if: your wound has increased redness and your wound has increased drainage Follow-up/Referrals: Rosa Abdalla DO [Primary Care Provider] - Diet: Regular Addtl Attending Provider Instructions: Activity and Therapy Recommendations: * If you are using [facility] then therapy will be provided at your home until they feel you have accomplished all of your goals. * If you are using [facility] then Physical Therapy will be provided until they feel you are ready to start Outpatient Physical Therapy. * If you are not using home therapy then Outpatient Physical Therapy should start about 3-5 days from your day of surgery. Therapy will last about 8-12 weeks * Wear your sling for 3 weeks, unless otherwise instructed. You may remove your sling to shower and to dress, but otherwise, you should be in your sling at all times, including while sleeping * The shoulder replacement is very stable and you can use your hand while in the sling * You were shown a series of exercises in the hospital. Do these exercises daily including the exercises you were shown in physical therapy. Medications: * Narcotic You will likely be sent home from the hospital with a prescription for the narcotic pain medication that worked best throughout your stay. * Other medications may be prescribed for specific circumstances. If you have any questions, please call the office at . * Resume previous home medications unless otherwise instructed Dressing Care: Leave the plastic dressing in place for 5 days. After 5 days you may remove the plastic dressing. If the incision is not draining then you may leave the abdelrahman open to air. If there is a little bit of drainage or if the abdelrahman are getting stuck on your clothing then cover the incision with a dry dressing. The abdelrahman will be removed at your 2 week follow-up appointment. Showering: You may shower with the plastic dressing in place. Let the shower spray hit the other shoulder. You can pat the plastic dry. If the dressing becomes wet underneath the plastic then simply remove the dressing. Keep the incision dry until you are 5 days out from the day of surgery. At that time you can shower with the abdelrahman exposed. Let the soapy shower water run over the abdelrahman and pat them dry. Do not scrub or soak the incision. Things To Watch For: * Drainage from the incision site that occurs more than one week after your surgery. * Increased redness at the incision site. * Fever above 102 degrees Fahrenheit. * Unusual chest pain or shortness of breath. * Call [facility] at with any of the above problems Follow-Up Visit: Follow-up with Dr. Johnson's PA (Stone Dickey) 2-3 weeks after your day of surgery. He will remove your abdelrahman and answer any questions. If you have any additional questions or concerns, Dr Johnson is usually in the office at the same time and will be available An appointment was probably scheduled when you signed-up for surgery in the office. If you have any questions call More detailed instructions as well as Frequently Asked Questions were provided in a folder by our office when you signed-up for surgery. Please review these instructions when you get home. If you have any further questions or concerns, please feel free to call the office at [phone] Pending Studies at Discharge: No Stand-Alone Forms: [facility], Sm[facility] Cessation Medications and DC Order Prescriptions: New oxycodone 5 mg Tablet 5 mg PO Q4H PRN (Reason: pain) Qty: 20 RF: 0 Continued diclofenac sodium 50 mg Tablet,Delayed Release (Dr/Ec) 50 mg PO TID PRN (Reason: Pain) RF: 0 losartan 100 mg Tablet 100 mg PO QAM RF: 0 tramadol 50 mg Tablet 50 - 100 mg PO Q6H PRN (Reason: Pain) RF: 0 aspirin 81 mg Tablet,Delayed Release (Dr/Ec) 81 mg PO QAM RF: 0 hydrochlorothiazide 25 mg Tablet 25 mg PO QAM RF: 0 rosuvastatin 10 mg Tablet 10 mg PO HS RF: 0 cholecalciferol (vitamin D3) [Vitamin D3] 50 mcg (2,000 unit) Tablet 50 mcg PO QAM RF: 0 Discharge Orders: Discharge Order (Routine); Ordered 02/06/20 Ordered By: Stone Johnson Admission Data Admit Date/Time: 02/05/20 16:29 Attending Provider: Stone Johnson Admit Provider: Stone Johnson Primary Care Provider: Rosa Abdalla Coding Level of Care Code D/C Day Management <30 mins Diagnoses Status post reverse arthroplasty of left shoulder Z96.612
[2020-02-06] MEDS ORDERED: dexAMETHasone 4 MG TAB PO SCH (08:00)
[2020-02-06] MEDS: DOCUSATE SODIUM 100 MG CAP PO SCH (08:59)
[2020-02-06] MEDS ORDERED: hydroCHLOROthiazide 25 MG TAB PO SCH (09:00)
[2020-02-06] MEDS ORDERED: MULTIVITAMIN TAB PO SCH (09:00)
[2020-02-06] MEDS ORDERED: LOSARTAN POTASSIUM 50 MG TAB PO SCH (09:00)
[2020-02-06] MEDS ORDERED: ASPIRIN 81 MG ECTAB PO SCH (09:00)
== END 2020-02-06 12:25 | disposition home or self-care (01) | DRG 483 ==
LOC: ASU 10:45 → 3E 16:29

== ENCOUNTER 2022-08-16 05:43 | Inpatient (IN) ==
--- NOTE | 2022-07-19 15:48 | PAT Medication Instructions ---
Medication Instructions Date of Service July 19, 2022 Home Medications Medication Instructions Recorded ondansetron HCl 4 mg tablet 4 mg PO Q8H PRN nausea and 02/06/20 (Zofran) vomiting #15 tabs losartan 100 mg tablet 100 mg PO QAM aspirin 81 mg tablet,delayed release 81 mg PO QAM cholecalciferol (vitamin D3) 50 mcg (2,000 unit) tablet (Vitamin D3) 50 mcg PO QAM hydrochlorothiazide 25 mg tablet 25 mg PO QAM rosuvastatin 10 mg tablet 10 mg PO HS ondansetron HCl 4 mg tablet (Zofran) 4 mg PO Q8H PRN nausea and vomiting sertraline 25 mg tablet 25 mg PO QAM ASK your prescriber and surgeon aspirin 81 mg tablet,delayed release 81 mg PO QAM DO NOT take the morning of surgery losartan 100 mg tablet 100 mg PO QAM cholecalciferol (vitamin D3) 50 mcg (2,000 unit) tablet (Vitamin D3) 50 mcg PO QAM hydrochlorothiazide 25 mg tablet 25 mg PO QAM Take morning of surgery With a small sip of water, OTHERWISE NOTHING TO EAT OR DRINK AFTER MIDNIGHT: ondansetron HCl 4 mg tablet (Zofran) 4 mg PO Q8H PRN nausea and vomiting (if needed) sertraline 25 mg tablet 25 mg PO QAM Take evening before surgery rosuvastatin 10 mg tablet 10 mg PO HS ondansetron HCl 4 mg tablet (Zofran) 4 mg PO Q8H PRN nausea and vomiting (if needed) Other Notes If you have any questions please call us at [phone] or [phone] or [phone] or [phone]
--- NOTE | 2022-07-22 13:48 | Anesthesiology Consultation ---
Date of Service July 22, 2022 Assessment & Plan (1) Encounter for pre-operative examination: - COVID screening: Per assessment on 07/22: No known COVID-19 positive contacts. Travel screen negative. Patient vaccinated. She states that last week she had one day of mild sore throat and cough, now resolved. Covid test done at [facility] 07/22/22 was negative. - S/P Left reverse TSA (02/05/20): LMA#4 + PNB at [facility] - Cardiology office visit (07/15/22): "Functional capacity better since she had RIGHT knee fixed. Has trouble walking due to leg weakness. Can walk about [address] Almanza thinks part of pt's walking could be related to spine too. Denies SOB. Reviewed most recent cardiac testing. Clear at intermediate risk." Chart Review Chart Review: Acceptable Risk for Surgery and Patient seen in Pre Admission Testing Teaching & Discussion Pre-Anesthesia Teaching/Discussion Notes: Instructed NPO after midnight before surgery,except medications with 15 cc of water. Medication instructions provided according to the [facility] guidelines. History Surgery Operation Date: 08/16/22 12:55 Proposed Procedures p C5-C6 Anterior Cervical Discectomy, C3-C6 Fusion, C4 Corpectomy, Spinal Cord Monitoring - Britton Almanza, DO Height/Weight Height: 5 ft 5.5 in Weight: 100.7 kg Allergies Allergy/AdvReac Type Severity Reaction Status Date / Time Penicillins Allergy Severe Dyspnea, Verified 07/22/22 14:06 throat/limb swelling (see comments) thiopental [From Pentothal] Allergy Severe Dyspnea, Verified 07/22/22 14:06 throat/limb swelling (see comments) amlodipine AdvReac Intermediate Bradycardia Verified 07/22/22 14:06 Medications Home Medications Medication Instructions Recorded Confirmed Last Taken losartan 100 mg tablet 100 mg PO QAM 11/08/18 07/19/22 02/04/20 10:00 aspirin 81 mg tablet,delayed 81 mg PO QAM 01/30/20 07/19/22 02/04/20 10:00 release cholecalciferol (vitamin D3) 50 50 mcg PO QAM 01/30/20 07/19/22 02/04/20 10:00 mcg (2,000 unit) tablet (Vitamin D3) hydrochlorothiazide 25 mg tablet 25 mg PO QAM 05/07/19/22 02/04/20 10:00 rosuvastatin 10 mg tablet 10 mg PO HS 01/30/20 07/19/22 02/04/20 17:00 ondansetron HCl 4 mg tablet 4 mg PO Q8H PRN nausea and 02/06/20 07/19/22 Unknown (Zofran) vomiting #15 tabs sertraline 25 mg tablet 25 mg PO QAM 07/19/22 07/19/22 Unknown Past Medical History Medical History (Updated 07/22/22 @ 14:38 by Lyn Rodriguez) Heartburn Occasional Hyperlipidemia Hypertension Obesity Osteoarthritis Spinal stenosis Urinary, incontinence, stress female Vascular disease S/P RLE stent (4+ years ago) Follows with vascular, no recent issues Exercise / Class Metabolic Activity III < 4 Walking/Shop/Light housework Past Family History Family History Other No significant family history Past Surgical History Surgical History (Updated 07/23/22 @ 10:47 by Lyn Rodriguez) History of bilateral hip replacements History of cardiac catheterization 2005 > no stents 01/08/21 > "minimal CAD. Medical therapy." per 07/2022 cardio records History of cataract surgery B/L + LENS IMPLANT History of colonoscopy History of lumbar surgery History of reverse total replacement of left shoulder joint Left reverse TSA (02/05/20): LMA#4 + PNB at [facility] History of reverse total replacement of right shoulder joint History of right knee joint replacement History of surgery RLE STENT History of tooth extraction History of total abdominal hysterectomy and bilateral salpingo-oophorectomy Nausea and vomiting after administration of anesthetic agent Past Anesthesia History No Hx of Anesthesia Complications (except PONV) and No Family Hx of Anesthesia Complications History of PONV History of PONV and Hx of Motion Sickness Social History Smoking Status: Never smoker Do You Dip or Chew Tobacco: No Hx Alcohol Use: No Hx Substance Use: No substance use type: does not use Review of Systems Patient denies chest pain, shortness of breath, fever, chills, cough, wheezing, palpitations. Physical Exam Vital Signs VITALS BP 120/81 P 81 TEMP 98.4 SP02 93%RA RESP 16 PHYSICAL Full cervical extension range of motion. Full TMJ range of motion. TMD 4 finger breaths Mallampati Score 2 Dentition: full dentures upper/lower Lungs: clear throughout to auscultation Cardiac: regular rate and rhythm, no murmurs noted Spine: normal Carotid arteries: negative bruit Extremities: no edema Lab Results Anesthesia Preop Results Results Anesthesia Widget: WBC 6.59 K/ul (4.8-10.8) 07/22/22 Hgb 14.8 g/dl (12.0-16.0) 07/22/22 Hct 43.6 % (34.1-44.9) 07/22/22 Plt 222 K/uL (130-400) 07/22/22 Na 138 mmol/L (136-145) 07/22/22 K 3.5 mmol/L (3.5-5.1) 07/22/22 Cl 100 mmol/L (98-107) 07/22/22 CO2 31 mmol/L (21-32) 07/22/22 BUN 18 mg/dl (6-23) 07/22/22 Creat 0.81 mg/dl (0.6-1.2) 07/22/22 Glucose Level 107 mg/dl (70-99(Fasting)) H 07/22/22 PT 11.1 Seconds (9.0-12.0) 07/22/22 PTT 26.9 Seconds (21.0-31.0) 07/22/22 INR 1.0 (0.9-1.1) 07/22/22 Urine Color Dark Yellow 07/22/22 Urine Appearance Clear (Clear) 07/22/22 Urine pH 7.5 (4.5-7.5) 07/22/22 Urine Specific [place] 1.025 (1.000-1.030) 07/22/22 Urine Protein Negative (Negative) 07/22/22 Urine Glucose (UA) Negative (Negative) 07/22/22 Urine Ketones Trace (Negative) H 07/22/22 Urine Blood Negative (Negative) 07/22/22 Urine Nitrite Negative (Negative) 07/22/22 Urine Bilirubin Negative (Negative) 07/22/22 Urine Urobilinogen Negative (Negative) 07/22/22 Urine Leukocyte Esterase Negative (Negative) 07/22/22 Blood Type A Negative 07/22/22 Antibody Screen NEGATIVE 07/22/22 Testing Electrocardiogram Date: 07/15/22 NSR at 82bpm. Septal infarct, age undetermined. Possible inferior infarct, age undetermined. unconfirmed report. Chest X-Ray Date: 07/22/22 FINDINGS: Bilateral shoulder arthroplasties are incidentally noted. Lung volumes are normal. Lungs are clear. There is no pneumothorax or pleural effusion. Cardiac size is normal. Mediastinal contours are normal. There is no evidence for pulmonary edema. IMPRESSION: No acute cardiopulmonary findings. Echocardiogram Date: 04/14/22 LVEF 70-75%. Impaired LV relaxation. No significant valvular disease. Mild AR. No significant change compared to 12/03/20 per report. Stress Test Date: 11/01/19 Type: nuclear Resting EF: 60% Baseline EKG showed sinus rhythm. No significant ST changes with Lexiscan administration. Patient reached 74% MPHR. PVCs. Patient developed dizziness (in recovery), chest pain, "feeling hot" during Lexiscan administration. Stress test is negative for ischemia by EKG criteria. No clear findings: LV and RV normal size. Normal LV wall motion. SPECT images normal. No evidence of infarction or ischemia noted. Recommend medical treatment. Cardiac Catheterization Date: 01/08/21 Minimal CAD. Medical management recommended. COVID-19 Risk Screen Screening Information COVID-19 Screen Date: 07/22/22 Exposure 21 Days Family/Household +COVID Last 21 Days: No Exposure 10 Days Any COVID Exposure Last 10 Days: No Symptoms Last 10 Days Experienced COVID Sx Last 10 Days: Yes + COVID 0-90 Days COVID + in Last 0-90 Days: No
[2022-08-16] MEDS ORDERED: ACETAMINOPHEN 500 MG TAB PO SCH (06:00)
[2022-08-16] MEDS ORDERED: CLINDAMYCIN/D5W 900 MG/50 ML BAG IV SCH (06:00)
[2022-08-16] MEDS ORDERED: GABAPENTIN 300 MG CAP PO SCH (06:00)
[2022-08-16] MEDS ORDERED: CeleBREX 200 MG CAP PO SCH (06:00)
[2022-08-16] MEDS ORDERED: LR 15ML/HR IV SCH (06:00)
[2022-08-16] MEDS ORDERED: ceFAZolin 330 MG/ML 1 GM VIAL ONE (07:06)
[2022-08-16] MEDS ORDERED: LIDOCAINE 2% MPF LOCAL 5 ML VIAL INFIL ONE (07:09)
[2022-08-16] MEDS ORDERED: ROCURONIUM BROMIDE 10 MG/ML 5 ML VIAL IV ONE ×6 (07:09→08:33)
[2022-08-16] MEDS ORDERED: ONDANSETRON INJ 2 MG/ML 2 ML VIAL ONE (07:09)
[2022-08-16] MEDS ORDERED: DEXAMETHASONE SOD INJ 4 MG/ML VIAL ONE ×2 (07:09→08:26)
[2022-08-16] MEDS ORDERED: PROPOFOL IV EMULSION 10 MG/ML 20 ML VIAL IV ONE (07:09)
[2022-08-16] MEDS ORDERED: fentaNYL citrate 100 MCG/2 ML VIAL ONE (07:11)
[2022-08-16] MEDS ORDERED: PROMETHAZINE HCL 6.25 MG in SODIUM CHLORIDE 0.9% 50 ML IV PRN (07:20)
[2022-08-16] MEDS ORDERED: ONDANSETRON INJ 2 MG/ML 2 ML VIAL IV PRN ×2 (07:20→13:08)
[2022-08-16] MEDS ORDERED: HYDROmorphone INJ 1 MG/ML SYRINGE IV PRN ×2 (07:20→13:08)
[2022-08-16] MEDS ORDERED: ePHEDrine sulfate 50 MG/ML AMP IV PRN (07:20)
[2022-08-16] MEDS ORDERED: ATROPINE SULFATE 0.1 MG/ML 10ML SYR IV PRN (07:20)
--- NOTE | 2022-08-16 07:38 | History & Physical Bridge Note ---
Date of Service August 16, 2022 History & Physical Bridge Note I have examined the patient, reviewed the History & Physical and in the interval since the performance of the History & Physical I have noted the following changes of clinical significance: no changes noted
--- NOTE | 2022-08-16 07:40 | History & Physical Report ---
Date of Service August 16, 2022 Assessment & Plan (1) Myelopathy concurrent with and due to spinal stenosis of cervical region: Plan: C4 corpectomy, anterior cervical discectomy and fusion C5-C6 fusion fusion C3-C6 History of Present Illness Chief Complaint: Neck and arm pain Primary Care Provider: Rosa Abdalla DO This is an 82-year-old female presents with chronic persistent neck and arm pain after failed extensive course of nonoperative care is here for surgical invention. Allergies Allergy/AdvReac Type Severity Reaction Status Date / Time Penicillins Allergy Severe Dyspnea, Verified 08/16/22 06:13 throat/limb swelling (see comments) thiopental [From Pentothal] Allergy Severe Dyspnea, Verified 08/16/22 06:13 throat/limb swelling (see comments) amlodipine AdvReac Intermediate Bradycardia Verified 08/16/22 06:13 Home Medications Medication Instructions Recorded Confirmed Type losartan 100 mg tablet 100 mg PO QAM 11/08/18 08/16/22 History aspirin 81 mg tablet,delayed 81 mg PO QAM 01/30/20 08/16/22 History release cholecalciferol (vitamin D3) 50 50 mcg PO QAM 01/30/20 08/16/22 History mcg (2,000 unit) tablet (Vitamin D3) hydrochlorothiazide 25 mg tablet 25 mg PO QAM 01/30/20 08/16/22 History rosuvastatin 10 mg tablet 10 mg PO HS 01/30/20 08/16/22 History ondansetron HCl 4 mg tablet 4 mg PO Q8H PRN nausea and 02/06/20 08/16/22 Rx (Zofran) vomiting #15 tabs sertraline 25 mg tablet 25 mg PO QAM 07/19/22 08/16/22 History Past Med/Surg History Medical History (Updated 08/16/22 @ 07:39 by Britton Almanza DO) Heartburn Occasional Hyperlipidemia Hypertension Obesity Osteoarthritis Spinal stenosis Urinary, incontinence, stress female Vascular disease S/P RLE stent (4+ years ago) Follows with vascular, no recent issues Surgical History History of bilateral hip replacements History of cardiac catheterization 2005 > no stents 01/08/21 > "minimal CAD. Medical therapy." per 07/2022 cardio records History of cataract surgery B/L + LENS IMPLANT History of colonoscopy History of lumbar surgery History of reverse total replacement of left shoulder joint Left reverse TSA (02/05/20): LMA#4 + PNB at [facility] History of reverse total replacement of right shoulder joint History of right knee joint replacement History of surgery RLE STENT History of tooth extraction History of total abdominal hysterectomy and bilateral salpingo-oophorectomy Nausea and vomiting after administration of anesthetic agent Family History Other No significant family history Social History Smoking Status: Never smoker Second Hand Exposure: No; Do You Dip or Chew Tobacco: No; Tobacco Cessation Education Requested by Patient: No Hx Alcohol Use: No Hx Substance Use: No Preferred Language: Maori Communication Ability: Effective Tape Calender Required: No Beliefs That Will Affect Care: None marital status: Current Living Situation: Spouse Other Information That Helps Us Care for You: No Feels Safe at Home: Yes Safety Concerns: Feels Safe At This Time Assistive Devices: None Physical Exam Physical Exam: Patient is alert and oriented Heart regular rhythm Lungs clear Results & Data Results & Data ([facility]) Vital Signs (Past 12 Hours) Vital Signs Temp Pulse Resp BP Pulse Ox O2 Del Method 08/16/22 06:17 37.0 C 79 16 168/89 H 93 Room Air
[2022-08-16] MEDS ORDERED: ePHEDrine sulfate 50 MG/ML SYR ONE (08:22)
[2022-08-16] MEDS ORDERED: FLOSEAL HEMOSTATIC MATRIX 10ML TOP ONE (09:04)
--- NOTE | 2022-08-16 09:29 | Operative Report ---
Post Operative Report Pre & Post Diagnosis Operation Date: 08/16/22 07:45 Pre-Op Diagnosis: Spondylosis with Myelopathy, Cervical Region Post-Op Diagnosis: Spondylosis with Myelopathy, Cervical Region I identified the patient and participated in the time-out.: Yes Procedure Operation Date: 08/16/22 07:45 Actual Procedures #1 anterior cervical corpectomy of C4 with bilateral foraminotomies. #2 anterior cervical discectomy C5-C6. #3 anterior cervical arthrodesis C3-C5 and C5-C6. #4 placement of 20 mm peek cage at C3-C5 and 5 mm cage at C5-C6. #5 daysi cement locally harvested morselized autograft combined with I factor and interbody cages. #6 application of K2 M [place] plate from see 3 to see 6. Surgeon Britton Almanza, Firewall Engineer Elizabeth Cortes Estimated Blood Loss 10 Findings Consistent with Post-Op Diagnosis Specimens None Indications This is an 82-year-old female who presents with marked advanced cervical myelopathy and is here for cervical decompression fusion. Description of Procedure Patient was met with identified informed consent obtained. Patient was then ta jolie to the operative suite underwent ablation placed in supine position the Efrain table with head Alvarado aquatics assistant department head. All bony prominences well-padded eyes inspected to ensure no external pressure placed upon them. This point the anterior cervical spine was prepped and draped in a sterile fashion. The assistance of fluoroscopy identified the C4-C5 disc base and a transverse incision was placed along the right anterior aspect of the cervical spinal lines region. Blunt dissection with the assistance of bipolar electrocautery was formed down to and exposing the anterior cervical spine from C3-C6. Self- retaining retractors placed. Then formed a complete discectomy of C3-C4 out to the uncovertebral joints bilaterally followed by C4-C5. Friendly distractor pins were then placed in C3 and see 5 to distract across the C4 vertebral body. Complete corpectomy was then performed including removal of all posterior annular fibers longitudinal ligament bilateral foraminotomies performed. E ndplates burred to subcortical bleeding bone and a 21 mm peek cage filled with locally harvested morselized autograft and I factor tapped in position. Then proceeded to C5-C6 and again complete discectomy performed out to the uncovertebral's bilaterally. Friendly distracting pins again utilized. Endplates burred to subcortical bleeding bone and a 5 mm peek cage filled with I factor and locally harvested morselized autograft tapped in position. All anterior osteophytes burred to a smooth cortical surface and a K2 M plate and screws applied with assistance of fluoroscopy. Incision was then copiously irrigated explored to ensure no damage to surrounding structures or remaining bleeding. 10 round LORI drain inserted. The incision was then closed with 2 Vicryl in a fashion of 4 Monocryl for fascial closure. Steri-Strips dressings placed. Patient waken and taken to PACU in stable condition. Please note spinal cord monitoring was utilized at the procedure no changes noted. Lastly Elizabeth Cortes was present at the entire surgeon while the patient positioning complex portions of the surgery and fascial closure. I attest to the content of the Intraoperative Record and any orders documented therein. Any exceptions are noted below.
[2022-08-16] MEDS: fentaNYL citrate 100 MCG/2 ML VIAL IV PRN ×2 (10:06→10:13)
--- NOTE | 2022-08-16 10:07 | Fluoroscopy Report ---
FL cervical 2-3V CLINICAL HISTORY: C5-C6 ACD, C3-C6 fusion, C4 corpectomy COMPARISON STUDY: None. FLUOROSCOPY TIME: 11 seconds. FINDINGS: 2 fluoroscopic spot images of the cervical spine demonstrate anterior cervical discectomy a nd fusion from C3 through C6 with C4 corpectomy. The hardware appears intact. IMPRESSION: Fluoroscopic assistance provided for C3-C6 ACDF. ACT 112: Negative or not required by law. Electronically signed by: Juan Luis Nicole M.D. 08/16/2022 10:04 AM
[2022-08-16] MEDS ORDERED: bisacodyL 10 MG SUPP PR PRN (13:08)
[2022-08-16] MEDS ORDERED: dexAMETHasone 8 MG in SYRINGE 0 ML IV PRN (13:08)
[2022-08-16] MEDS ORDERED: ACETAMINOPHEN 500 MG TAB PO PRN (13:08)
[2022-08-16] MEDS ORDERED: RACEPINEPHRINE 2.25% NEBU SOLN 0.5 ML VIAL INH PRN (13:08)
[2022-08-16] MEDS ORDERED: DO NOT ADMINISTER FLU VACCINE PRN (13:08)
[2022-08-16] MEDS ORDERED: LORazepam 0.5 MG in SYRINGE 0 ML IV PRN (13:08)
[2022-08-16] MEDS ORDERED: diphenhydrAMINE Capsule 25 MG CAP PO PRN (13:08)
[2022-08-16] MEDS ORDERED: DO NOT ADMINISTER PNEUMOCOCCAL VACCINE PRN (13:08)
[2022-08-16] MEDS ORDERED: METOCLOPRAMIDE HCL INJ 5 MG/ML 2 ML VIAL IV PRN (13:08)
[2022-08-16] MEDS ORDERED: HYDROmorphone INJ 0.5 MG/0.5 ML SYR IV PRN (13:08)
[2022-08-16] MEDS ORDERED: hydrOXYzine HCl 25 MG TAB PO PRN (13:08)
[2022-08-16] MEDS ORDERED: oxyCODONE HCL IR 5 MG TAB (IMMEDIATE RELEASE) PO PRN (13:08)
[2022-08-16] MEDS ORDERED: PROMETHAZINE HCL 12.5 MG in SODIUM CHLORIDE 0.9% 50 ML IV PRN (13:08)
[2022-08-16] MEDS ORDERED: LORazepam 0.5 MG TAB PO PRN (13:08)
[2022-08-16] MEDS ORDERED: NALOXONE HCL 0.4 MG/1 ML VIAL/CARP IV PRN (13:08)
[2022-08-16] MEDS ORDERED: ACETAMINOPHEN 1,000 MG/100 ML VIAL IV PRN (13:08)
[2022-08-16] MEDS ORDERED: ONDANSETRON 4 MG OD TAB PO PRN (13:08)
[2022-08-16] MEDS ORDERED: SOD PHOSPHATE/SOD BIPHOSPHATE ENEMA 132 ML BTL PR PRN (13:08)
[2022-08-16] MEDS ORDERED: ALUMINUM/MAGNESIUM SUSP 30 ML UDC PO PRN (13:08)
[2022-08-16] MEDS ORDERED: FAMOTIDINE 20 MG TAB PO PRN (13:08)
[2022-08-16] MEDS ORDERED: MAGNESIUM HYDROXIDE SUSP 30 ML UDC PO PRN (13:08)
[2022-08-16] MEDS: SODIUM CHLORIDE 0.9% 1000ML 1,000 ML IV SCH ×2 (14:09→23:10)
--- NOTE | 2022-08-16 14:22 | Anesthesiology Progress Note ---
Date of Service August 16, 2022 Anesthesia Post Procedure Vital Signs Vital Signs: Temp Pulse Resp BP BP Pulse Ox O2 Del Method 08/16/22 14:05 80 18 94 Nasal Cannula 08/16/22 13:30 36.3 C L 70 23 117/67 92 Nasal Cannula 08/16/22 13:00 71 20 117/70 92 Nasal Cannula 08/16/22 12:30 77 15 122/73 92 Nasal Cannula 08/16/22 12:00 60 16 119/61 92 Nasal Cannula 08/16/22 11:45 60 18 119/67 92 Nasal Cannula 08/16/22 11:30 62 16 118/69 92 Nasal Cannula 08/16/22 11:15 72 17 115/61 91 Nasal Cannula 08/16/22 11:00 56 L 16 122/70 95 Nasal Cannula 08/16/22 10:45 60 17 122/73 95 Nasal Cannula 08/16/22 10:35 36.4 C L 61 16 125/72 95 Nasal Cannula 08/16/22 10:25 56 L 15 122/68 98 Nasal Cannula 08/16/22 10:15 67 17 126/70 96 Oxymask 08/16/22 10:05 69 21 132/77 99 Oxymask 08/16/22 09:55 68 18 135/79 98 Oxymask 08/16/22 09:45 87 21 140/83 98 Oxymask 08/16/22 09:38 36.2 C L 82 20 141/77 H 96 Oxymask 08/16/22 06:17 37.0 C 79 16 168/89 H 93 Room Air O2 Flow Rate 08/16/22 14:05 2 08/16/22 13:30 2 08/16/22 13:00 2 08/16/22 12:30 2 08/16/22 12:00 2 08/16/22 11:45 2 08/16/22 11:30 2 08/16/22 11:15 2 08/16/22 11:00 2 08/16/22 10:45 2 08/16/22 10:35 2 08/16/22 10:25 3 08/16/22 10:15 5 08/16/22 10:05 10 08/16/22 09:55 10 08/16/22 09:45 10 08/16/22 09:38 10 12/05/22 06:17 Pain Intensity Anterior Neck: Pain Intensity: 4 Transfer of Care Handoff Completed per policy Notes Mental Status: alert / awake / arousable Patient Amnestic to Procedure: Yes Nausea / Vomiting: adequately controlled Pain: adequately controlled Airway Patency, RR, SpO2: stable & adequate BP & HR: stable & adequate Hydration State: stable & adequate Anesthetic Complications: no major complications apparent
[2022-08-16] MEDS: CLINDAMYCIN/D5W 600 MG/50 ML BAG IV SCH ×2 (17:52→22:41)
--- NOTE | 2022-08-16 18:07 | Hospitalist Consultation ---
Date of Consultation August 16, 2022 Assessment & Plan (1) Myelopathy concurrent with and due to spinal stenosis of cervical region: POD #0 - C3-C6 fusion, C5-C6 discectomy - Pain control, DVT prophylaxis, PT/OT per primary team - Incentive spirometry - Labs in AM (2) CAD (coronary artery disease): Medically managed - continue home medications (3) Hypertension: Currently well-controlled - pt reports that she does well as long as she takes outpatient meds as directed (4) Hyperlipidemia: (5) Chronic venous insufficiency: (6) Aortic regurgitation: Plan Continue home medications as appropriate Monitor BP Wean O2 as tolerated Encourage OOB as tolerated Pt seen and reviewed with collaborating physician, Dr. Flores. Plan of care discussed and as outlined above. Thank you for this consultation. We will continue to follow this patient with you. A member of the [facility]ist team is available 04/04 via [employer]. Please do not hesitate to reach out with questions. Beck Vazquez PA-C Supervising Physician Co-Signing Physician Notes I have seen and examined the patient and have discussed the case with the provider above. I agree with the assessment and plan as stated. DO Mark History of Present Illness Reason for Consultation: Post-operative medical management Requesting Physician: Dr. Britton Almanza Attending Physician: Britton Almanza DO History of Present Illness This is an 82 y/o female with a PMH of mild CAD, HTN, dyslipidemia, chronic venous stasis, PAD, and cervical myelopathy who underwent C3-C6 fusion and C5-C6 discectomy by Dr. Almanza today and for whom we have been consulted to assist with post-operative medical management. Pt reports issues with both cervical a nd lumbar spine but neck was worse. Main complaint was weakness, numbness, and uncoordinated use of her hands bilaterally. She also noted that hands were always cold. Currently, she is having minimal pain in her neck. Hands feel warm. Denies numbness or tingling at present. She does have a dry scratchy throat but denies dysphagia. Tolerated clear liquids for dinner without N/V. Denies CP, palpitations, SOB, cough, MARKS or dizziness. Overall, she is feeling well other than her chronic back pain and the mild neck discomfort. Allergies Allergy/AdvReac Type Severity Reaction Status Date / Time Penicillins Allergy Severe Dyspnea, Verified 08/16/22 06:13 throat/limb swelling (see comments) thiopental [From Pentothal] Allergy Severe Dyspnea, Verified 08/16/22 06:13 throat/limb swelling (see comments) amlodipine AdvReac Intermediate Bradycardia Verified 08/16/22 06:13 Home Medications Medication Instructions Recorded Confirmed Type losartan 100 mg tablet 100 mg PO QAM 11/08/18 08/16/22 History aspirin 81 mg tablet,delayed 81 mg PO QAM 01/30/20 08/16/22 History release cholecalciferol (vitamin D3) 50 50 mcg PO QAM 01/30/20 08/16/22 History mcg (2,000 unit) tablet (Vitamin D3) hydrochlorothiazide 25 mg tablet 50 mg PO QAM 01/30/20 08/16/22 History rosuvastatin 10 mg tablet 10 mg PO HS 01/30/20 08/16/22 History ondansetron HCl 4 mg tablet 4 mg PO Q8H PRN nausea and 02/06/20 08/16/22 Rx (Zofran) vomiting #15 tabs sertraline 25 mg tablet 25 mg PO QAM 07/19/22 08/16/22 History oxycodone 5 mg tablet 5 mg PO Q6H PRN pain, severe #20 08/16/22 08/16/22 Rx tabs tramadol 50 mg tablet 50 mg PO Q6H PRN pain, moderate 08/16/22 08/16/22 Rx #20 tabs Patient History Medical History Aortic regurgitation CAD (coronary artery disease) Chronic venous insufficiency Heartburn Occasional Hyperlipidemia Hypertension Obesity Osteoarthritis Spinal stenosis Urinary, incontinence, stress female Vascular disease S/P RLE stent (4+ years ago) Follows with vascular, no recent issues Surgical History History of bilateral hip replacements History of cardiac catheterization 2005 > no stents 01/08/21 > "minimal CAD. Medical therapy." per 07/2022 cardio records History of cataract surgery B/L + LENS IMPLANT History of colonoscopy History of lumbar surgery History of reverse total replacement of left shoulder joint Left reverse TSA (02/05/20): LMA#4 + PNB at [facility] History of reverse total replacement of right shoulder joint History of right knee joint replacement History of surgery RLE STENT History of tooth extraction History of total abdominal hysterectomy and bilateral salpingo-oophorectomy Nausea and vomiting after administration of anesthetic agent Family History (Updated 08/16/22 @ 21:21 by Aimee Vazquez PA-C) Mother Heart disease Social History Smoking Status: Never smoker Second Hand Exposure: No; Do You Dip or Chew Tobacco: No; Tobacco Cessation Education Requested by Patient: No Hx Alcohol Use: No Hx Substance Use: No Preferred Language: Yemeni Communication Ability: Effective Carpenter'S Helper Required: No Beliefs That Will Affect Care: None marital status: Current Living Situation: Spouse Other Information That Helps Us Care for You: No Feels Safe at Home: Yes Safety Concerns: Feels Safe At This Time Assistive Devices: None Review of Systems Review of Systems: All systems reviewed & are unremarkable except as noted in HPI & below Constitutional: no fever, no chills, no sweats and no anorexia Eyes: no diplopia Ear, Nose, Mouth, Throat: no nasal congestion, no nasal discharge and no dysphagia Respiratory: no cough and no dyspnea Cardiovascular: no chest pain and no palpitations Gastrointestinal: no abdominal pain, no nausea and no vomiting Genitourinary: no dysuria Musculoskeletal: + back pain and + neck pain Integumentary: no yellowing of the skin Neurologic: no dizziness and no headache(s) Psychiatric: no depression and no anxiety Physical Exam Constitutional: well developed and well nourished; no acute distress Eyes: + anicteric sclerae ENMT: external ear and nose normal, oropharynx normal Neck: plastic cervical collar in place, dressing C/D/I Respiratory: no respiratory distress and no labored breathing Auscultation: lungs clear to auscultation bilaterally; no rales, no rhonchi and no wheezes Cardiovascular: Rate/Rhythm: regular rate and regular rhythm Heart Sounds: + murmur Vessels: dorsalis pedis pulses present and radial pulses present Extremities: no pedal edema Gastrointestinal (Abdomen): Inspection/Auscultation: normal bowel sounds; abdomen not distended Percussion/Palpation: abdomen soft; abdomen nontender Musculoskeletal: Head/Neck/Chest: normocephalic and head atraumatic Skin: no jaundice Neurologic: moves all extremities ios developer strength diminished but equal bilaterally Psychiatric: A+Ox3, euthymic affect Results & Data Results & Data ([facility]) Vital Signs (Past 12 Hours) Vital Signs Temp Pulse Pulse Resp BP BP Pulse Ox 08/16/22 17:44 36.9 C 73 20 114/67 94 08/16/22 16:00 36.7 C 77 16 114/72 94 08/16/22 14:00 37 C 82 20 129/75 94 08/16/22 14:05 80 18 94 08/16/22 13:30 36.3 C L 70 23 117/67 92 08/16/22 13:00 71 20 117/70 92 08/16/22 12:30 77 15 122/73 92 08/16/22 12:00 60 16 119/61 92 08/16/22 11:45 60 18 119/67 92 08/16/22 11:30 62 16 118/69 92 08/16/22 11:15 72 17 115/61 91 08/16/22 11:00 56 L 16 122/70 95 08/16/22 10:45 60 17 122/73 95 08/16/22 10:35 36.4 C L 61 16 125/72 95 08/16/22 10:25 56 L 15 122/68 98 08/16/22 10:15 67 17 126/70 96 08/16/22 10:05 69 21 132/77 99 08/16/22 09:55 68 18 135/79 98 08/16/22 09:45 87 21 140/83 98 08/16/22 09:38 36.2 C L 82 20 141/77 H 96 08/16/22 06:17 37.0 C 79 16 168/89 H 93 O2 Del Method O2 Flow Rate 08/16/22 17:44 Room Air 2 08/16/22 16:00 Nasal Cannula 2 08/16/22 14:00 Nasal Cannula 2 08/16/22 14:05 Nasal Cannula 2 08/16/22 13:30 Nasal Cannula 2 08/16/22 13:00 Nasal Cannula 2 08/16/22 12:30 Nasal Cannula 2 08/16/22 12:00 Nasal Cannula 2 08/16/22 11:45 Nasal Cannula 2 08/16/22 11:30 Nasal Cannula 2 08/16/22 11:15 Nasal Cannula 2 08/16/22 11:00 Nasal Cannula 2 08/16/22 10:45 Nasal Cannula 2 08/16/22 10:35 Nasal Cannula 2 08/16/22 10:25 Nasal Cannula 3 08/16/22 10:15 Oxymask 5 08/16/22 10:05 Oxymask 10 08/16/22 09:55 Oxymask 10 08/16/22 09:45 Oxymask 10 08/16/22 09:38 Oxymask 10 08/16/22 06:17 Room Air Laboratory Results Laboratory Results - last 24 hr 08/16/22 06:10 SARS-CoV-2, RNA, NAAT NEGATIVE Medications Administered Acetaminophen (Acetaminophen 500 Mg Tab) 1,000 mg PO Q8H PRN PRN Reason: MILD Pain Scale 1,2,3 & Pre PT Stop: 09/15/22 13:07 Last Admin: 08/16/22 14:48 Dose: 1,000 mg Documented By: MIKE Lactated Ringer's (Lr) 1,000 mls @ 15 mls/hr IV .Q24H [facility] Stop: 08/17/22 05:59 Last Infusion: 08/16/22 07:45 Dose: 0 mls/hr Documented By: Admin: 08/16/22 06:31 Dose: 15 mls/hr Documented By: NATALY Sodium Chloride (Nss 1000ml) 1,000 mls @ 100 mls/hr IV .Q10H [facility] Stop: 09/15/22 13:07 Last Admin: 08/16/22 14:09 Dose: 100 mls/hr Documented By: MIKE Clindamycin Phosphate (Cleocin/D5w) 600 mg in 50 mls @ 100 mls/hr IV Q8H [facility] Last Infusion: 08/16/22 19:31 Dose: 0 mls/hr Documented By: Admin: 08/16/22 17:52 Dose: 100 mls/hr Documented By: MIKE Rosuvastatin Calcium (Rosuvastatin Calcium 10 Mg Tab) 10 mg PO JAVIER Stop: 09/15/22 20:59 Last Admin: 08/16/22 20:07 Dose: 10 mg Documented By: NATALIIA Senna/Docusate Sodium (Docusate Sodium/Senna 50/8.6mg Tab) 2 tab PO JAVIER Stop: 09/15/22 20:59 Last Admin: 08/16/22 20:07 Dose: 2 tab Documented By: NATALIIA Tramadol HCl (Tramadol Hcl 50 Mg Tablet) 50 - 100 mg PO Q4H PRN PRN Reason: Moderate-Severe pain & Pre PT Stop: 09/15/22 13:07 Last Admin: 08/16/22 20:06 Dose: 50 mg Documented By: DM Discontinued Medications Acetaminophen (Acetaminophen 500 Mg Tab) 1,000 mg PO PREOP JAVIER Stop: 08/16/22 18:00 Last Admin: 08/16/22 06:32 Dose: 1,000 mg Documented By: NATALY Cefazolin Sodium (Cefazolin 330 Mg/Ml 1 Gm Vial) Confirm Administered Dose 990 mg .ROUTE .STK-MED ONE Stop: 08/16/22 07:07 Last Admin: 08/16/22 09:04 Dose: 990 mg Documented By: VIRGINIA Celecoxib (Celebrex 200 Mg Cap) 200 mg PO PREOP JAVIER Stop: 08/16/22 18:00 Last Admin: 08/16/22 06:32 Dose: 200 mg Documented By: NATALY Fentanyl Citrate (Fentanyl Citrate 100 Mcg/2 Ml Vial) 50 mcg IV Q5M PRN PRN Reason: PACU Use Only-Pain Stop: 08/16/22 15:20 Last Admin: 08/16/22 10:13 Dose: 50 mcg Documented By: Admin: 08/16/22 10:06 Dose: 50 mcg Documented By: NATHALIE Gabapentin (Gabapentin 300 Mg Cap) 300 mg PO PREOP JAVIER Stop: 08/16/22 18:00 Last Admin: 08/16/22 06:32 Dose: 300 mg Documented By: NATALY Clindamycin Phosphate (Cleocin/D5w) 900 mg in 50 mls @ 100 mls/hr IV PREOP JAVIER; Protocol Stop: 08/16/22 18:00 Last Infusion: 08/16/22 07:54 Dose: 0 mls/hr Documented By: Admin: 08/16/22 07:40 Dose: 100 mls/hr Documented By: [id number] Miscellaneous ( Floseal Hemostatic Matrix 10ml) 10 ml TOP ONCE ONE Stop: 08/16/22 09:05 Last Admin: 08/16/22 09:15 Dose: 10 ml Documented By: VIRGINIA Ondansetron HCl (Ondansetron Inj 2 Mg/Ml 2 Ml Vial) 4 mg IV ONCE PRN PRN Reason: PACU Use Only-Nausea/Vomiting Stop: 08/16/22 15:20 Last Admin: 08/16/22 10:03 Dose: 4 mg Documented By: NATHALIE
[2022-08-16] MEDS: traMADol HCL 50 MG TABLET PO PRN (20:06)
[2022-08-16] MEDS: ROSUVASTATIN CALCIUM 10 MG TAB PO SCH (20:07)
[2022-08-16] MEDS: DOCUSATE SODIUM/SENNA 50/8.6MG TAB PO SCH (20:07)
[2022-08-17] MEDS: traMADol HCL 50 MG TABLET PO PRN ×3 (03:28→21:07)
[2022-08-17] MEDS: POLYETHYLENE (MIRALAX) 17 GM PACK PO SCH ×3 (05:51→17:55)
[2022-08-17 08:12] LABS: Basophils # (auto) 0.01 K/uL (0-0.2); Basophils % (auto) 0.1 %; Eosinophils # (auto) 0.01 K/uL (0-0.50); Eosinophils % (auto) 0.1 %; Hematocrit (blood only) 34.8 % (34.1-44.9); Hemoglobin 11.6 g/dl (12.0-16.0); Immature Granulocytes # (auto) 0.03 K/uL (0.00-0.02); Immature Granulocytes % (auto) 0.3 %; Lymphocytes # (auto) 0.94 K/uL (1.2-3.4); Lymphocytes % (auto) 10.9 %; Mean Corpuscular Hemoglobin 28.6 pg (25.0-34.0); Mean Corpuscular Hgb Conc 33.3 g/dL (32.0-36.0); Mean Corpuscular Volume 85.7 fL (80.0-100.0); Mean Platelet Volume 10.3 fL (9.4-12.3); Monocytes # (auto) 0.79 K/uL (0.24-0.82); Monocytes % (auto) 9.1 %; Neutrophils # (auto) 6.88 K/uL (1.4-6.5); Neutrophils % (auto) 79.5 %; Platelet Count 166 K/uL (130-400); RDW Coefficient of Variation 14.2 % (11.5-14.5); Red Blood Count 4.06 M/uL (3.93-5.22); White Blood Count 8.66 K/ul (4.8-10.8)
[2022-08-17] MEDS: LOSARTAN POTASSIUM 50 MG TAB PO SCH (08:36)
[2022-08-17] MEDS: dexAMETHasone 6 MG in SYRINGE 0 ML IV SCH (08:36)
[2022-08-17] MEDS: hydroCHLOROthiazide 25 MG TAB PO SCH (08:36)
[2022-08-17] MEDS: ASPIRIN 81 MG ECTAB PO SCH (08:37)
[2022-08-17] MEDS: SERTRALINE HCL 50 MG TABLET PO SCH (08:37)
[2022-08-17 09:00] LABS: BUN Creatinine Ratio 19.7 (10-20); Creatinine Clr Calc Pharmacy 74.6 ml/min; Est GFR (Non-African American) 81.1 ml/min; Potassium 3.4 mmol/L (3.5-5.1)
[2022-08-17] MEDS ORDERED: hydroCHLOROthiazide 25 MG TAB PO SCH (09:00)
[2022-08-17] MEDS ORDERED: POTASSIUM CHLORIDE CRTAB 20 MEQ TABCR PO STA (09:09)
--- NOTE | 2022-08-17 10:35 | Orthopedic Progress Note ---
Date of Service August 17, 2022 Assessment & Plan (1) Myelopathy concurrent with and due to spinal stenosis of cervical region: Plan: Today we will continue with nursing care ambulation as tolerated. Monitor LORI output anticipate discharge home tomorrow. Admission and Anticipated Discharge Date Admission Date: August 16, 2022 Subjective Patient's pain is controlled. She is swallowing well. No hoarseness. EXTR strength testing. Physical Exam Physical Exam: On exam her strength is intact in upper extremities. Sensory is improving. Results & Data ([facility]) Vital Signs (Past 12 Hours) Vital Signs Temp Pulse Resp BP Pulse Ox O2 Del Method O2 Flow Rate 08/17/22 06:00 52 L 16 95 Nasal Cannula 2 08/17/22 07:50 36.5 C 56 L 16 128/85 96 Room Air 08/17/22 02:35 47 L 16 96 Nasal Cannula 2 08/16/22 23:55 55 L 18 96 Nasal Cannula 2 08/16/22 23:38 36.4 C L 54 L 16 111/69 94 Nasal Cannula 2
--- NOTE | 2022-08-17 13:47 | Hospitalist Progress Note ---
Date of Service August 17, 2022 Assessment & Plan (1) Myelopathy concurrent with and due to spinal stenosis of cervical region: Plan: POD #1 - C3-C6 fusion, C5-C6 discectomy - Pain control, DVT prophylaxis, PT/OT per primary team - Incentive spirometry Acute Blood loss anemia, likely postoperative and dilutional: Preop Hb 14.8 and post op 11.6; c/t monitor. (2) CAD (coronary artery disease): Plan: Medically managed - continue home medications (3) Hypertension: Plan: Currently well-controlled - pt reports that she does well as long as she takes outpatient meds as directed (4) Hyperlipidemia: (5) Chronic venous insufficiency: (6) Aortic regurgitation: Plan Continue home medications as appropriate Monitor BP Wean O2 as tolerated Encourage OOB as tolerated Admission and Anticipated Discharge Date Admission Date: August 16, 2022 Subjective Patient seen and examined at bedside as a follow-up of medical management for status cervical spine surgery for myelopathy concurrent with and due to spinal stenosis of cervical region. Patient was sitting up in chair, on 2 L nasal cannula oxygen, NAD, reports no new acute event overnight, reports improvement in her bilateral hand sensation, reports feeling better, has not moved bowel, is moving gas, has been started on liquid diet, denies other review of symptoms. Physical Exam Physical Exam: GENERAL: Alert and oriented x3. NAD, on RA. HEENT: No pallor, no icterus. Pupils equal, round and reactive to light. Oral mucosa moist. Cervical spine w/ c-collar and operative site dressings, LORI drain with minimal serosanguineous collection noted. NECK: No JVD, no neck masses. HEART: S1 and S2 heard. Regular rate and rhythm. No murmur, no gallop. RESPIRATORY SYSTEM: Normal AP diameter. No accessory muscle use. No wheezing, no crackles. ABDOMEN: Soft, bowel sounds present, nontender, no distention. CENTRAL NERVOUS SYSTEM: No facial droop. Speech is clear. Obeys simple commands. Moves extremities. EXTREMITIES: trace ble edema, no erythema seen. Results & Data Results & Data ([facility]) Vital Signs (Past 12 Hours) Vital Signs Temp Pulse Resp BP Pulse Ox O2 Del Method O2 Flow Rate 08/17/22 09:50 36.8 C 62 18 93 Nasal Cannula 2 08/17/22 11:37 37 C 64 18 151/86 H 94 Nasal Cannula 2 08/17/22 07:30 Nasal Cannula 2 08/17/22 10:00 59 L 18 96 Nasal Cannula 2 08/17/22 06:00 52 L 16 95 Nasal Cannula 2 08/17/22 07:50 36.5 C 56 L 16 128/85 96 Room Air 08/17/22 02:35 47 L 16 96 Nasal Cannula 2
[2022-08-17] MEDS: ROSUVASTATIN CALCIUM 10 MG TAB PO SCH (21:08)
[2022-08-17] MEDS: DOCUSATE SODIUM/SENNA 50/8.6MG TAB PO SCH (21:08)
[2022-08-18] MEDS: POLYETHYLENE (MIRALAX) 17 GM PACK PO SCH ×3 (00:30→12:19)
[2022-08-18 06:50] LABS: Hematocrit (blood only) 35.2 % (34.1-44.9); Hemoglobin 11.8 g/dl (12.0-16.0); Mean Corpuscular Hemoglobin 28.6 pg (25.0-34.0); Mean Corpuscular Hgb Conc 33.5 g/dL (32.0-36.0); Mean Corpuscular Volume 85.4 fL (80.0-100.0); Mean Platelet Volume 10.3 fL (9.4-12.3); Platelet Count 175 K/uL (130-400); RDW Coefficient of Variation 14.3 % (11.5-14.5); RDW Standard Deviation 44.3 fL (36.4-46.3); Red Blood Count 4.12 M/uL (3.93-5.22); White Blood Count 8.19 K/ul (4.8-10.8)
[2022-08-18 07:18] LABS: BUN Creatinine Ratio 19.7 (10-20); Calcium 9.6 mg/dl (8.5-10.1); Creatinine Clr Calc Pharmacy 69.4 ml/min; Est GFR (African American) 90.7 ml/min; Est GFR (Non-African American) 78.2 ml/min; Magnesium 1.8 mg/dl (1.7-2.4); Potassium 3.8 mmol/L (3.5-5.1)
[2022-08-18] MEDS: SERTRALINE HCL 50 MG TABLET PO SCH (08:39)
[2022-08-18] MEDS: LOSARTAN POTASSIUM 50 MG TAB PO SCH (08:39)
[2022-08-18] MEDS: ASPIRIN 81 MG ECTAB PO SCH (08:39)
[2022-08-18] MEDS: dexAMETHasone 6 MG in SYRINGE 0 ML IV SCH (08:39)
[2022-08-18] MEDS: hydroCHLOROthiazide 25 MG TAB PO SCH (08:40)
--- NOTE | 2022-08-18 10:00 | Discharge Summary ---
Date of Service August 18, 2022 Admission HPI Per Admitting Provider This is an 82-year-old female presents with chronic persistent neck and arm pain after failed extensive course of nonoperative care is here for surgical invention. Principal Diagnosis Cervical spinal stenosis with myeloradiculopathy Discharge Data Allergies Allergy/AdvReac Type Severity Reaction Status Date / Time Penicillins Allergy Severe Dyspnea, Verified 08/16/22 06:13 throat/limb swelling (see comments) thiopental [From Pentothal] Allergy Severe Dyspnea, Verified 08/16/22 06:13 throat/limb swelling (see comments) amlodipine AdvReac Intermediate Bradycardia Verified 08/16/22 06:13 Consultations 08/16/22 13:08 Consult Hospitalist Routine Procedures Performed Operation Date: 08/16/22 07:45 Actual Procedures p C5-C6 Anterior Cervical Discectomy, C3-C6 Fusion, C4 Corpectomy, Spinal Cord Monitoring(Not Applicable) - Britton Almanza DO Ordered Studies 08/16/22 [place] cervical 2-3V Routine Hospital Course (1) Myelopathy concurrent with and due to spinal stenosis of cervical region: Patient underwent multilevel anterior cervical discectomy and fusion tolerated as well as taken to orthopedic for postop labor postop day 1 she was up and ambulating hand function improving she is ambulating well. She progressed to postop day #2. LORI drain decreased appropriate. Swallowing without difficulty. No hoarseness. Good strength testing. Separately discharged home. Discharge orders instructions from the chart for further review. Total Time Total Time Spent Total Time Spent (In Minutes): 20 minutes Discharge Plan Discharge Items Patient Disposition: Home - Self-Care Reason For Visit: Spondylosis with Myelopathy, Cervical Region Discharge Diagnosis: Cervical spinal stenosis with myelopathy Activity: As commented below Non-emergency contact: Primary Care Provider Call non-emergency contact if: you have any medication questions Follow-up/Referrals: Rosa Abdalla DO [Primary Care Provider] - Diet: Regular Addtl Attending Provider Instructions: ACTIVITY RECOMMENDATIONS: SELF CARE INSTRUCTIONS AFTER CERVICAL FUSIONS 1. No smoking. Smoking drastically decreases the chance of a solid fusion. 2. No bending, lifting more than 5 pounds, or twisting (roll like a log when turning in bed). 3. You may shower 3 days after surgery. Thoroughly dry wound. Do not soak in the tub. 4. Cervical collar: Must be worn at all times including sleeping. You may remove the brace only to bath, eat and if you are sitting in a recliner. 5. Please walk as much as you can for exercise. Gradually increase the distance that you walk as your endurance increases. SPECIAL CARE INSTRUCTIONS: VERY IMPORTANT TO READ AND REVIEW A. Do not take any anti-inflammatory medications (i.e. Indocin, Advil, Aspirin, Naprosyn, Aleve, Motrin, etc.) as these may inhibit the chance of a solid fusion. Tylenol is okay to take. B. Your surgical incision has been closed with a cosmetic suture under the skin that will dissolve in about 6 weeks. In 14 days, you can use a pair of clean scissors and cut the suture that is left outside of the skin at the ends of your incision. C. Complications are uncommon, but please contact us if you have any signs or symptoms of: 1. wound infection (fever higher than 102.5 degrees F, redness, separation of wound, drainage, or increasing pain from the incision) 2. blood clots in legs (pain, swelling, redness and warmth in legs) 3. urinary tract infection (fever higher than 102.5 degrees, burning upon urination or increased frequency of urination) 4. nerve problems (inability to walk on your toes or heels, numbness, loss of bowel or bladder control) 5. any other symptoms that concern you. D. Please call the office at if you have any concerns or questions about your operation or recovery. MANAGING PAIN AFTER SPINAL SURGERY 1. Narcotic medication is intended for short-term use and will be provided for surgical pain. Surgical pain usually lasts for a period of 4-6 weeks. Narcotic medication includes Percocet, Vicodin, Darvocet, Tylenol #3 or Lortab. 2. Longer-term pain is more appropriately treated with non-narcotic medication such as Tylenol ES. 3. Muscle spasm is not appropriately treated with narcotics. Muscle relaxers such as Soma, Flexeril or Skelaxin can be used along with Tylenol ES. 4. Remember that we all live with some "aches and pains". This is not unusual or uncommon after an injury or as we get older. 5. We will provide appropriate medication within the normal guidelines of their prescribed use. We will also be very cautious and aware of potential abuse and extended duration of patients' medication needs. 6. Please allow 2-3 days to process refills. Prescriptions will not be mailed but must be picked up at the office. FOLLOW UP VISIT: Keep your scheduled follow-up appointment. Any questions, please call the office at . Pending Studies at Discharge: No Stand-Alone Forms: [facility], Smoking Cessation Medications and DC Order Prescriptions: New oxycodone 5 mg tablet 5 mg PO Q6H PRN (Reason: pain, severe) Qty: 20 0RF tramadol 50 mg tablet 50 mg PO Q6H PRN (Reason: pain, moderate) Qty: 20 0RF Continued ondansetron HCl [Zofran] 4 mg tablet 4 mg PO Q8H PRN (Reason: nausea and vomiting) Qty: 15 0RF losartan 100 mg Tablet 100 mg PO QAM aspirin 81 mg Tablet,Delayed Release (Dr/Ec) 81 mg PO QAM hydrochlorothiazide 25 mg Tablet 50 mg PO QAM rosuvastatin 10 mg Tablet 10 mg PO HS cholecalciferol (vitamin D3) [Vitamin D3] 50 mcg (2,000 unit) Tablet 50 mcg PO QAM sertraline 25 mg Tablet 25 mg PO QAM Discharge Orders: Discharge Order (Routine); Ordered 08/18/22 Ordered By: Britton Almanza Admission Data Admit Date/Time: 08/16/22 09:33 Attending Provider: Britton Almanza Admit Provider: Britton Almanza Primary Care Provider: Rosa Abdalla Other Providers: Isamar Flores ; Krystal Rico
--- NOTE | 2022-08-18 13:06 | Hospitalist Progress Note ---
Date of Service August 18, 2022 Assessment & Plan (1) Myelopathy concurrent with and due to spinal stenosis of cervical region: Plan: POD #2 - C3-C6 fusion, C5-C6 discectomy - Pain control, DVT prophylaxis, PT/OT per primary team - Incentive spirometry Acute Blood loss anemia, likely postoperative and dilutional: Preop Hb 14.8 and post op 11.6; c/t monitor. (2) CAD (coronary artery disease): Plan: Medically managed - continue home medications (3) Hypertension: Plan: Currently well-controlled - pt reports that she does well as long as she takes outpatient meds as directed (4) Hyperlipidemia: (5) Chronic venous insufficiency: (6) Aortic regurgitation: Plan Continue home medications as appropriate Monitor BP Wean O2 as tolerated Encourage OOB as tolerated Admission and Anticipated Discharge Date Admission Date: August 16, 2022 Subjective Patient seen and examined at bedside as a follow-up of medical management for status cervical spine surgery for myelopathy concurrent with and due to spinal stenosis of cervical region. Patient was sitting up in bed, on RA, NAD, reports no new acute event overnight, reports improvement in her bilateral hand sensation, reports feeling better, has not moved bowel, is moving gas, is tolerating diet, denies other review of symptoms. Physical Exam Physical Exam: GENERAL: Alert and oriented x3. NAD, on RA. HEENT: No pallor, no icterus. Pupils equal, round and reactive to light. Oral mucosa moist. Cervical spine w/ c-collar and operative site dressings, LORI drain with scant serosanguineous collection noted. NECK: No JVD, no neck masses. HEART: S1 and S2 heard. Regular rate and rhythm. No murmur, no gallop. RESPIRATORY SYSTEM: Normal AP diameter. No accessory muscle use. No wheezing, no crackles. ABDOMEN: Soft, bowel sounds present, nontender, no distention. CENTRAL NERVOUS SYSTEM: No facial droop. Speech is clear. Obeys simple commands. Moves extremities. EXTREMITIES: trace ble edema, no erythema seen. Results & Data Results & Data ([facility]) Vital Signs (Past 12 Hours) Vital Signs Temp Pulse Pulse Resp BP Pulse Ox O2 Del Method 08/18/22 11:30 36.5 C 80 64 18 146/81 H 92 08/18/22 11:00 64 18 92 Room Air 08/18/22 07:00 52 L 16 93 Room Air 12/07/22 07:45 36.5 C 56 L 16 146/81 H 94 Room Air 08/18/22 03:09 55 L 16 94 Nasal Cannula O2 Flow Rate 08/18/22 11:30 08/18/22 11:00 08/18/22 07:00 08/18/22 07:45 08/18/22 03:09 2
[2022-08-18] MEDS: traMADol HCL 50 MG TABLET PO PRN (13:15)
== END 2022-08-18 13:43 | disposition home or self-care (01) | DRG 472 ==
LOC: ASU 05:43 → PACUINP 09:33 → 3E 14:16